=== PATIENT | female | born 1960 | race Caucasian/White ===

== ENCOUNTER 2022-02-18 13:26 | Outpatient (CLI) | payer MEDICARE, SELFPAY ==
--- NOTE | ~2022-02-18 | XR_ITS ---
XR knee RT 3V 02/18/2022 14:28 Indication: Right knee pain Procedure: 3 views right knee Comparison: No prior studies for comparison. Findings: There is mild-moderate tricompartment osteoarthritis. Small joint effusion. No fracture or traumatic malalignment. No foreign bodies. Impression: 1: Mild-moderate osteoarthritis of the right knee. Reviewed, dictated and finalized at location B. TRIMMER Impression: 1: Mild-moderate osteoarthritis of the right knee.
== END 2022-02-18 13:27 | disposition home or self-care (01) ==
LOC: CHSIMG 13:35
PROVIDERS: PCP Physician Assistant; Visit Provider Physician Assistant
DX: M25.561 Pain in right knee (principal)
CPT/HCPCS: 73562

== ENCOUNTER 2022-07-24 11:47 | Outpatient (CLI) | payer MEDICARE, MEDICAID, SELFPAY ==
--- NOTE | ~2022-07-24 | XR_ITS ---
EXAMINATION: XR knee RT 3V DATE: 07/24/2022 12:11 INDICATION: Right knee pain TECHNIQUE: Three views of the right knee were obtained. COMPARISON: 02/18/2022 FINDINGS: There is moderate osteoarthritis of the medial and patellofemoral compartments. Joint space s are normal with no erosions. There is a small knee joint effusion. Soft tissues are unremarkable. IMPRESSION: 1. Small knee joint effusion without acute osseous abnormality. Reviewed, dictated and finalized at location B.
== END 2022-07-24 11:48 | disposition home or self-care (01) ==
LOC: CHSIMG 11:50
PROVIDERS: PCP Physician Assistant; Visit Provider Physician Assistant
DX: M25.561 Pain in right knee (principal); M25.461 Effusion, right knee
CPT/HCPCS: 73562

== ENCOUNTER 2025-03-15 11:50 | Outpatient (CLI) | payer MEDICARE, MEDICAID, SELFPAY ==
--- OUTSIDE RECORDS SUMMARY | 2024-03-13 15:30 | XMS_ITS ---
Author Organization [facility] Address [address] [place], [place] [id number] Care Team Providers Care Tour Director Name Role Phone Allan Benedict MD Primary Care Provider Willy Del Toro Unavailable [phone] Migration, Provider Unavailable Unavailable Allergies Allergen (clinical drug ingredient) Drug/Non Drug Allergy documented on EMR Reaction Allergy Type Onset Date Status ciprofloxacin Cipro vomiting Drug Allergy Act ana Penicillin rash Drug Allergy Active REASON FOR VISIT Multum To Medispan Conversion Encounter Medications Medication SIG (Take, Route, Frequency, Duration) Notes Start Date End Date Status LaMICtal *Please review a nd pick correct strength-formulation from Medispan options. If intended option is not shown, discontinue and re-order from Quick Search* Active Vimpat *Please review a nd pick correct strength-formulation from Medispan options. If intended option is not shown, discontinue and re-order from Quick Search* Active Keppra *Please review a nd pick correct strength-formulation from Medispan options. If intended option is not shown, discontinue and re-order from Quick Search* Active Encounters Encounter Location Date Provider Diagnosis [facility] [address] [place], [place] [address] 03/13/2024 Provider Migration Plan Of Treatment No Information Progress Notes * Marcela CALVIN JDOB: [birth year] (65 yo F)Acc No.[id number]:03/13/2024 Patient: Marcela Ochoa Provider: Anne knight Migration :1960 A ge:64 Y S ex:Female Date:03/13/2024 Address:[facility]/[address] [place] [address] Pcp:Allan Benedict MD Subjective: * Chief Complaints: * M ultum To Medispan Conversion Encounter * Medications: T akingVimpat , Notes to Pharmacist: *Please review and pick correct strength-formulation from Medispan options. If intended option is not shown, discontinue and re-order from Quick Search*LaMICtal , Notes to Pharmacist: *Please review and pick correct strength-formulation from Medispan options. If intended option is not shown, discontinue and re-order from Quick Search*Keppra , Notes to Pharmacist: *Please review and pick correct strength-formulation from Medispan options. If intended option is not shown, discontinue and re-order from Quick Search*Taking Vimpat , Notes to Pharmacist: *Please review and pick correct strength-formulation from Medispan options. If intended option is not shown, discontinue and re-order from Quick Search*Taking LaMICtal , Notes to Pharmacist: *Please review and pick correct strength-formulation from Medispan options. If intended option is not shown, discontinue and re-order from Quick Search*Taking Keppra , Notes to Pharmacist: *Please review and pick correct strength- formulation from Medispan options. If intended option is not shown, discontinue and re-order from Quick Search* * Allergies: P enicillin: rashCipro: vomiting * Electronic signature of Prov ider Migration on 03/15/2025 at 02:09 PM COAGULATING BATH OPERATOR Sign off status: Pending * Provider: Anne knight Migration Date: 05/14/2023 Generated for Maria Antonia price/Nirmal/Eliotsmitting on: 05/16/2024 02:09 PM COAGULATING BATH OPERATOR
--- NOTE | ~2025-03-15 | XR_ITS ---
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 Technique: 2 views obtained. Findings: The lungs are clear, no effusion. No pneumothorax. Heart is normal size. Mediastinal and hilar contours are within normal limits. Bony thorax no acute abnormality. A subcutaneous implant noted. Impression: No acute cardiopulmonary abnormality. Reviewed, dictated and finalized at location P. CAGE ASSEMBLER Impression: No acute cardiopulmonary abnormality.
--- NOTE | 2025-03-15 12:06 | ECG_ITS ---
Test Date: 2025-03-15 12:16:33 Measurements Intervals [place] Rate: 88 P: 73 VA: 164 QRS: 87 QRSD: 86 T: 79 QT: 358 QTc: 435 Interpretive Statements SINUS RHYTHM CONSIDER ANTEROLATERAL INFARCT, AGE INDETERMINATE INFERIOR INFARCT, AGE INDETERMINATE BASELINE WANDER- V1-V2 ABNORMAL ECG No previous ECG available for comparison Electronically Signed On 03-15-2025 13:00:54 SANITARY LANDFILL OPERATOR by Reginaldo Ramirez D.O.
--- OUTSIDE RECORDS SUMMARY | 2025-03-15 14:10 | XMS_ITS ---
Author Organization [facility] Address [address] [place] [address] Phone Care Team Providers Care Alarm Adjuster Name Role Phone Gabriele Morrison Primary Care Provider [phone] Active Problems Problem Noted Date Diagnosed Date Folic acid deficiency 08/06/2024 CKD stage 3b, GFR 30-44 ml/min 08/06/2024 MDS (myelodysplastic syndrome) 06/25/2024 Hemochromatosis 03/08/2024 Anemia 03/08/2024 Sigmoid diverticulosis 11/10/2023 Current Treatment and Therapy Plans No current plan information found. Past Treatment and Therapy Plans ONCOLOGY SUPPORTIVE CARE Plan Name Start Date Discontinue Date Treatment Medications Discontinue Reason Plan Provider Cycles [facility]: Epoetin Fox (20,000 units every 2 weeks) - 56 Day Cycle - Support 08/09/2024 03/04/2025 No medications scheduled. Automatically Discontinued - Inactive Plan Pita Willams August, PAC 1 of 1 cycle started
--- OUTSIDE RECORDS SUMMARY | 2025-03-15 14:10 | XMS_ITS | Patient Health Record ---
Author Organization [facility] Address [address] [facility] [address] [place], [place] [address] Care Team Providers Care Supervisor Toy Assembly Name Role Phone Marichuy KAY, Allan Primary Care Provider Willy Del Toro [phone] Allergies Allergen (clinical drug ingredient) Drug/Non Drug Allergy documented on EMR Reaction Allergy Type Onset Date Status ciprofloxacin Cipro vomiting Drug Allergy Act ana Penicillin rash Drug Allergy Active Reason For Referral No Information Medications Medication SIG (Take, Route, Frequency, Duration) Notes Start Date End Date Status LaMICtal *Please review a nd pick correct strength-formulation from SeaDragon Softwarespan options. If intended option is not shown, discontinue and re-order from Quick Search* Active Vimpat *Please review a nd pick correct strength-formulation from SeaDragon Softwarespan options. If intended option is not shown, discontinue and re-order from Quick Search* Active Keppra *Please review a nd pick correct strength-formulation from SeaDragon Softwarespan options. 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
--- OUTSIDE RECORDS SUMMARY | 2025-03-15 14:10 | XMS_ITS | Clinical Summary ---
[facility] Address [address] [place] [address] Phone Care Team Providers Care Broom Worker Name Role Phone Gabriele Morrison Primary Care Provider [phone] Allergies Active Allergy Reactions Criticality Noted Date Comments Ciprofloxacin Diarrhea 03/08/2015 Penicillin G Rash 03/08/2015 Medications VIMPAT 200 MG Tablet 200 mg 2 times daily. 03/06/2015 Active lamoTRIgine (LAMICTAL) 100 MG Tablet 300 mg 2 times daily. 03/04/2015 Active Levetiracetam 1000 MG Tablet 1,500 mg 2 times daily. 03/04/2015 Active lisinopril (PRINIVIL, ZESTRIL) 2.5 MG Tablet 2.5 mg every morning. 02/06/2015 Active simvastatin (ZOCOR) 40 MG Tablet 40 mg daily. 02/06/2015 Active aspirin EC 81 MG Tablet Delayed Response Take 81 mg by mouth daily. Active Loratadine (CLARITIN) 10 MG Capsule Take 10 mg by mouth daily. Active famotidine (PEPCID) 20 MG Tablet Take 20 mg by mouth 2 times daily. Active LORazepam (Ativan) 1 MG Tablet Take 1 mg by mouth every 6 hours as needed. Active Magnesium 250 MG Tablet Take 250 mg by mouth 2 times daily. Active oxyCODONE-aceta minophen (Percocet) 5-325 MG TabletIndicatio ns:Multiple fractures of ribs, right side, initial encounter for closed fracture Take 1-2 Tablets by mouth every 8 hours as needed for Severe pain. 15 Tablet 06/05/2024 Active albuterol 108 (90 Base) MCG/ACT Aerosol Solution take 1-2 Puffs by inhalation. 06/24/2024 Active Active Problems Problem Noted Date Diagnosed Date Folic acid deficiency 08/06/2024 CKD stage 3b, GFR 30-44 ml/min 08/06/2024 MDS (myelodysplastic syndrome) 06/25/2024 Hemochromatosis 03/08/2024 Anemia 03/08/2024 Sigmoid diverticulosis 11/10/2023 Family History Medical History Relation Name Comments Diabetes Father Hypertension Father Osteoarthritis Father Rashes/Skin Problems Father Cancer Maternal Aunt 1 Cancer Maternal Aunt 2 Cancer Paternal Aunt Relation Name Status Comments Father Alive Maternal Aunt 1 Maternal Aunt 2 Alive Mother Alive Paternal Aunt Social History Tobacco Use Types Packs/Day Years Used Date Smoking Tobacco: Light Smoker Cigarettes Tobacco Cessation:Ready to Q uit: No; Counseling Given: No Comments:Off and on Alcohol Use Standard Drinks/Week Comments No 0 (1 standard drink = 0.6 oz pur e alcohol) Comments No Sex and Gender Information Value Date Recorded Sex Assigned at Not on file Legal Sex Female 8:34 PM CDT Gender Identity Not on file Sexual Orientation Not on file Last Filed Vital Signs Vital Sign Reading Time Taken Comments Blood Pressure 108/66 08/27/2024 11:04 AM CDT Pulse 71 08/27/2024 11:04 AM CDT Temperature 36.4 C (97.5 F) 08/27/2024 11:04 AM CDT Respiratory Rate 16 08/27/2024 11:04 AM CDT Oxygen Saturation 96% 08/27/2024 11:04 AM CDT Inhaled Oxygen Concentration - - Weight 55.8 kg (123 lb) 08/06/2024 2:13 PM CDT Height 170.2 cm (5' 7) 06/25/2024 2:26 PM CDT Body Mass Index 19.26 06/25/2024 2:26 PM CDT Plan of Treatment Health Maintenance Due Date Last Done Comments DEXA Bone Density 1960 Hepatitis C Virus (HCV) Screening 1960 Mammogram 1960 TdaP Immunization 1960 Cologuard 2003 Immunochemical Fecal Occult Blood 2003 Medicare Initial AWV [id number] 05/29/2009 Zoster Immunization (2 of 2) 02/12/2025 12/18/2024 SARS-COV-2 Immunization (9 - Pfizer risk season) 2025 12/18/2024, 02/03/2024, 12/30/2023, Additional history exists Colonoscopy 11/09/2033 11/10/2023, 11/10/2023 Colorectal Cancer Screening 11/09/2033 Pneumococcal Immunization (50+ years) Completed 02/20/2024, 03/04/2022 Influenza Immunization Completed , 02/03/2024, 12/30/2023, Additional history exists Respiratory Syncytial Virus (RSV) Immunization (Adult) Completed 11/27/2024 Hepatitis B Immunization Aged Out No longer eligible based on patient's age to complete this topic Human Papillomavirus (HPV) Immunization (No Doses Required) Completed Meningococcal Immunization (ACWY) Aged Out No longer eligible based on patient's age to complete this topic Rotavirus Immunization Aged Out No lo nger eligible based on patient's age to complete this topic Medical Devices Implanted Type Area Delta System Freight Car Cleaner Device Identifier Shelf Expiration Date Model / Serial / Lot Angioseal Vip 6fr - [id number] Implanted:Qty: 1 on 03/09/2015 by Mckayla Hernandez MD at [facility] IMPLANT Right: Groin [employer] / ATRIAL FIB 10/29/2015 [id number] / / [id number] Procedures Procedure Name Priority Date/Time Associated Diagnosis Comments GI IMAGING - COLONOSCOPY Routine 11/10/2023 9:30 AM CDT from Last 3 Months or Most Recently Relevant to Health Maintenance Results * GI IMAGING - COLONOSCOPY (11/10/2023 9:30 AM CDT) us Ke Burger MD IMG DIAGNOSTIC ORDERABLES Final Result from Last 3 Months or Most Recently Relevant to Health Maintenance Insurance MEDICAID [place] MEDICARE Care Teams Broom Worker Relationship Specialty Start Date End Date Gabriele Morrison PAC [address] [place] [address] PCP - General Physician Account Service Representative 03/08/15
--- OUTSIDE RECORDS SUMMARY | 2025-03-15 14:10 | XMS_ITS | Encounter Summary ---
Author Organization [facility] Address [address] [facility] [place] [address] Care Team Providers Care House Painter Name Role Phone Allan Benedict MD Unavailable [phone] Gabriele Morrison Primary Care Provider [phone] Encounter Details Date Type Department Care Team (Late st Contact Info) Description 05/20/2024 Lab Requisition [facility] - Pathology Lab [address] [place] [address] Ursula Randolph MD [facility] [address] [address] Illness, unspecified Social History Tobacco Use Types Packs/Day Years Used Date Smoking Tobacco: Every Day Cigarettes Smokeless Tobacco: Never Comments:offand on for 30 yr s Alcohol Use Standard Drinks/Week Comments No 0 (1 standard drink = 0.6 oz pur e alcohol) Comments No Sex and Gender Information Value Date Recorded Sex Assigned at Female 01/20/2021 9:42 AM CDT Legal Sex Female 11:57 AM PHOTOVOLTAIC TESTING TECHNICIAN Gender Identity Female 01/20/2021 9:42 AM CDT Sexual Orientation Straight 01/20/2021 9: 42 AM CDT documented as of this encounter Plan of Treatment Upcoming Encounters Date Type Department Care Team (Late st Contact Info) Description 08/08/2025 12:20 PM CDT Office Visit [place] [id number] [address] [place] [id number] [place] [address] [place] [phone] documented as of this encounter Procedures Procedure Name Priority Date/Time Associated Diagnosis Comments BONE MARROW BIOPSY (STL) Routine 05/19/2024 8:00 AM PHOTOVOLTAIC TESTING TECHNICIAN Illness, unspecified documented in this encounter Results * BONE MARROW BIOPSY (STL) (05/19/2024 8:00 AM PHOTOVOLTAIC TESTING TECHNICIAN) Case Report Bone Marrow Patholog y Report Case: [id number] Authorizing Provider: Ursula Randolph MD Collected: 05/19/2024 08:00 AM Ordering Location: [facility] - Received: 05/20/2024 12:55 PM Pathology Lab Pathologist: Mone Kowalski MD Specimens: A) - Bone Marrow Core B) - Bone Marrow Clot 05/25/2024 1:18 PM PHOTOVOLTAIC TESTING TECHNICIAN [facility] Final Diagnosis Bone marrow, iliac crest, core biopsy, clot section, and aspirate: - 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 The morphologic features of the bone marrow are consistent with a myelodysplastic neoplasm, assuming reactive etiologies of dyspoiesis have been eliminated which include nutritional deficiency (vitamin B12 and folate), heavy metal toxicity/deficiency (copper/zinc), autoimmune disease, infections, toxin exposure, and other reactive processes. The presence of 60% ring sideroblasts is highly suggestive of a myeloid neoplasm but not entirely specific for such and may be associated with lead toxicity, among other reactive processes. Correlation with cytogenetic data and molecular analysis is recommended. Myelodysplastic neoplasm with ring sideroblasts is associated with SF3B1 mutation but may be seen with any myeloid neoplasm. A CD34 immunohistochemistry stain is pending on the core biopsy to further assess the percent of blasts, but a significantly increased percentage of blasts is not appreciated by morphologic review. 05/25/2024 1:18 PM [facility] Peripheral Smear Description The patient's CBC performed at the time the bone marrow biopsy shows a white count of 5690/mcL, hemoglobin 9.6 g/dL, hematocrit 28.7%, MCV 107.5 fL, and a platelet count of 197,000/mcL. A differential was not performed. Review of the peripheral blood smear confirms the CBC data. The white count is within normal limits. The overall differential appears unremarkable with possible mild neutrophilia. Neutrophils are hypogranular, and occasional forms display ibrxce-Jwiiap-Hd t nuclei. Red cells are macrocytic. The platelet count and overall morphology are unremarkable. 05/25/2024 1:18 PM [facility] Bone Marrow Aspirate Differential count (200 cells): 1% blasts, 47% maturing myeloid precursors, 40.5% erythroid progenitors, 6.5% monocytes, 2% eosinophils, 2.5% lymphocytes, 0.5% plasma cells. Specimen quality: markedly suboptimal. Spicules: small. Trilineage Hematopoiesis: present Myeloid:Erythroid ratio: decreased. Mild myeloid dyspoiesis is noted characterized by hypogranular forms and neutrophils with nradvz-Abvhii-Mu t nuclei. Erythroid lineage cells mild dyspoiesis characterized by nuclear to cytoplasmic dyssynchrony, cytoplasmic vacuolization, and irregular nuclear contours. Storage iron (by special stain): adequate. Sideroblastic iron (by special stain): ring sideroblasts present accounting for 60% of the erythroid progenitors. 05/25/2024 1:18 PM [facility] Bone Marrow Core Biopsy and Clot Section Description Specimen quality: adequate with 0.6 cm of evaluable marrow. Cellularity: 20-30% Trilineage Hematopoiesis: present. Myeloid to Erythroid ratio: decreased. Myeloid maturation and localization: normal. Erythroid maturation and localization: normal. Megakaryocyte number: normal. Megakaryocyte distribution: normal. Lymphoid aggregates: absent. Bone trabeculae: normal. Blood vessels: normal. Plasma cells: normal. Clot section marrow particles: absent. Clot section morphology: peripheral blood only. 05/25/2024 1:18 PM [facility] Flow Cytometry Summary Flow cytometry identified a minimal T-cell aberrancy which was favored to be reactive and no diagnostic immunophenotypic evidence of monoclonal B-cells, increased blasts, plasma cell neoplasm ([id number]). 05/25/2024 1:18 PM [facility] Clinical History 64-year-old woman with anemia, exclude MDS 05/25/2024 1:18 PM [facility] Materials Received Received are 11 slide(s) labeled [id number] along with a copy of the outside pathology report. The materials originate from [facility], [address] [facility] [address]. All original materials are returned to the referring institution, along with a copy of our final report. 05/25/2024 1:18 PM [facility] Pathologist Location at [facility] 05/25/2024 1:18 PM [facility] Disclaimer The performance characteristics of all immunohistochemical and indirect immunofluorescence stains (if any) cited in this report were determined by the Histopathology Laboratory of [facility]. Some of these tests were developed by our own laboratory and have not been cleared or approved by the US Food and Drug Administration. The FDA does not require this test to go through premarket FDA review. These tests are used for clinical purposes. They should not be regarded as investigational or for research. This laboratory is certified under the Clinical Laboratory Improvement Amendments (CLIA) as qualified to perform high complexity clinical laboratory testing. This case has been personally reviewed and interpreted by the attending (teaching) pathologist. 05/25/2024 1:18 PM [facility] Addendum 1 CD34 is negative for increased blasts. Original diagnosis remains unchanged. 05/25/2024 1:18 PM [facility] Addendum electronically signed by Yessenia Miller MD on 05/25/2024 at 1318 PHOTOVOLTAIC TESTING TECHNICIAN Embedded Images 05/25/2024 1:18 PM [facility] Pathology/Cytology BONE MARROW CLOT SPECIMEN / Unknown 05/19/2024 8:00 AM PHOTOVOLTAIC TESTING TECHNICIAN 05/20/2024 12:55 PM PHOTOVOLTAIC TESTING TECHNICIAN Miscellaneous samples (specimen) BONE MARROW CLOT SPECIMEN / Unknown 05/19/2024 8:00 AM PHOTOVOLTAIC TESTING TECHNICIAN 05/20/2024 12:55 PM PHOTOVOLTAIC TESTING TECHNICIAN Ursula Randolph MD LAB - PATHOLOGY/CYTOLOGY ORDERAB LES Edited Result - Final [facility] [address] [place] [address], [facility] [phone] documented in this encounter Visit Diagnoses Diagnosis Illness, unspecified documented in this encounter Care Teams House Painter Relationship Specialty Start Date End Date Gabriele Morrison PA PCP - General Physician Owner Spa Director 04/22/11 Allan Benedict MD Neurology 11/19/10 documented as of this encounter
--- OUTSIDE RECORDS SUMMARY | 2025-03-15 14:10 | XMS_ITS | Encounter Summary ---
Author Organization [facility] Healthcare Address [address] [place] [address] Care Team Providers Care Alarm Technician Name Role Phone Alfredo Ortiz MD Unavailable [phone] Gabriele Morrison Primary Care Provider [phone] Mamadou Chavez MD Unavailable [phone] Tirso Troncoso MD Unavailable Mckayla Hernandez MD Unavailable [phone] Allan Benedict MD Unavailable [phone] Mitul Dennis OT Unavailable Unavailable Yaya Irvin MD Unavailable [phone] Encounter Details Date Type Department Care Team (Late st Contact Info) Description 02/02/2025 Results Follow-Up [facility] [address] [place] [address] Susi Torres MA ECG 12 lead, ECG 12 lead Social History Tobacco Use Types Packs/Day Years Used Date Smoking Tobacco: Some Days Cigarettes 0.3 39 Smokeless Tobacco: Never Alcohol Use Standard Drinks/Week Comments No 0 (1 standard drink = 0.6 oz pur e alcohol) AUDIT-C Answer Date Recorded Q1: How often do you have a drink containing alc ohol? Never 01/04/2025 Average Number of Drinks Not on file 025 Frequency of Binge Drinking Not on file 09/2024 Personal Safety Answer Date Recorded Have you ever been in or are you currently in a harmful physical or emotional relationship or is someone making you feel afraid or unsafe? 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 No 02/03/2025 2:56 PM Dionne Gustafson, RN * Question Answer Date of Assessment Author 1. In the past month, have y ou wished you were or that you could go to sleep and not wake up? No 02/03/2025 2:56 PM Dionne Gustafson, RN 2. In the past month, have y ou actually had any thoughts of killing yourself? No 02/03/2025 2:56 PM Dionne Gustafson, RN 6. Have you ever done anythi ng, started to do anything, or prepared to do anything to end your life? No 02/03/2025 2:56 PM Dionne Gustafson, RN * Suicide Risk Level Answer Date of Assessment Author No risk level 02/03/2025 2:56 PM Tanner Gustafson, RN * Integumentary Question Answer Date of Assessment Author Integumentary (WDL) WDL 02/03/2025 11:40 AM Dionne Herring, CHUCHO Skin Pertinent Negatives Intact;Warm;Dry 02/03/2025 11 :40 AM Dionne Gustafson, RN * Fall Risk Assessment Tool - MEDFRAT Question Answer Date of Assessment Author Prior Fall Event (Autopopulated from EMR) None found 02/03/2025 2:56 PM Tarsha Gustafson, RN History of falling in last 3 months, including since admission 0 02/03/2025 2:56 PM Dionne Gustafson, CHUCHO Confusion or disorientation 0 02/03/2025 2: 56 PM Dionne Gustafson, RN Intoxicated or sedated 0 02/03/2025 2:56 PM Dionne Gustafson, RN Impaired gait 1 02/03/2025 2:56 PM Dionne Portillo, RN Mobility assist device used 0 02/03/2025 2: 56 PM WELDING MACHINE OPERATOR Dionne Saucedo, CHUCHO Altered elimination 0 02/03/2025 2:56 PM CS T Dionne Saucedo, RN Fall risk score: (1-2 low risk), (3-4 moderate risk), (5 or more high risk) 1 02/03/2025 2:56 PM WELDING MACHINE OPERATOR Dionne Saucedo, RN documented as of this encounter Mental Status * Question Answer Entry Date Author Neuro (WDL) X 02/03/2025 11:40 AM WELDING MACHINE OPERATOR Dionne Marin, CHUCHO documented in this encounter Plan of Treatment Not on file documented as of this encounter Visit Diagnoses Not on filedocumented in this encounter Additional Health Concerns Infection Onset Date Last Indicated Resolved Time COVID: Suspected 02/03/2025 02/03/2025 02/03/2025 3:30 PM WELDING MACHINE OPERATOR documented as of this encounter Care Teams Alarm Technician Relationship Specialty Start Date End Date Gabriele Morrison PA [address] [place] [address] PCP - General Family Practice 11/22/22 Alfredo Ortiz MD Surgeon Neurosurgery 07/05/20 Mamadou Chavez MD [address] [place] [address] Referring Physician Medical Oncology 09/07/24 Tirso Troncoso MD [address] [place] [address] Medical Oncologist/Schedule Analyst Medical Oncology 09/07/24 Mckayla Hernandez MD [address] [place] [address] [place] [address] Consulting Physician Cardiology 01/04/25 [place] [address] [place] [address] [place] [id number] Referring Physician Neurology 01/04/25 Mitul Dennis OT Occupational Therapist Occupational Therapy 02/16/25 Yaya Irvin MD [address] [place] [address] [address] [place] [address] Surgeon Orthopedic Surgery 02/22/25 documented as of this encounter
--- OUTSIDE RECORDS SUMMARY | 2025-03-15 14:10 | XMS_ITS | Encounter Summary ---
Author Organization [facility] Address [address] [place] [address] Care Team Providers Care Sanitation Inspector Name Role Phone Allan Benedict MD Unavailable [phone] Gabriele Morrison Primary Care Provider [phone] Encounter Details Date Type Department Care Team (Late st Contact Info) Description 05/19/2024 Lab Requisition [facility] - Pathology Lab [address] [place] [address] Ursula Randolph MD [facility] [address] [address] Anemia, unspecified Social History Tobacco Use Types Packs/Day Years Used Date Smoking Tobacco: Every Day Cigarettes Smokeless Tobacco: Never Comments:offand on for 30 yr s Alcohol Use Standard Drinks/Week Comments No 0 (1 standard drink = 0.6 oz pur e alcohol) Comments No Sex and Gender Information Value Date Recorded Sex Assigned at Female 01/20/2021 9:42 AM CDT Legal Sex Female 11:57 AM [employer]ER [employer] Gender Identity Female 01/20/2021 9:42 AM CDT Sexual Orientation Straight 01/20/2021 9: 42 AM CDT documented as of this encounter Plan of Treatment Upcoming Encounters Date Type Department Care Team (Late st Contact Info) Description 08/08/2025 12:20 PM CDT Office Visit [place] [id number] [address] [place] [id number] [place] [phone] documented as of this encounter Procedures Procedure Name Priority Date/Time Associated Diagnosis Comments FLOW CYTOMETRY BONE MARROW Routine 05/19/2024 8:00 AM [facility] [employer] Anemia, unspecified documented in this encounter Results * FLOW CYTOMETRY BONE MARROW (05/19/2024 8:00 AM [facility] [employer]) Case Report Flow Cytometry Case: [id number] Authorizing Provider: Ursula Randolph MD Collected: 05/19/2024 08:00 AM Ordering Location: [facility] - Received: 05/19/2024 12:59 PM Pathology Lab Pathologist: Mone Kowalski MD Specimen: Bone Marrow 05/19/2024 3:50 PM [facility] Final Diagnosis Bone marrow, flow cytometric immunophenotyping: - Minimal T-cell aberrancy identified, favor reactive (see comment) - No diagnostic immunophenotypic evidence of monoclonal B-cells, increased blasts, or plasma cell neoplasm Comment: Two, minimally aberrant T-cell populations are identified as described below, each of which accounts for 3% or less of total cells. The low percentage of aberrant T cells, combined with the normal CD4:CD8 ratio, favors a reactive process. Correlation with histologic review the bone marrow is necessary. 05/19/2024 3:50 PM [facility] at [address]50 [facility] Flow Cytometry Interpretation Viability: 88% B-cells: 1.5% of total, polytypic, kappa:lambda ratio 1.4:1 T-cells: 14% of total, immunophenotypic aberrancy detected in a subset characterized by CD8-positive T cells with decreased CD3 expression compared to CD7 accounting for approximately 3% of total cells. In addition, a subset of CD4-positive T-cells is identified which shows decreased expression of CD7 compared to CD3 (approximately 2% of total). CD4:CD8 ratio 2.3:1 Blasts: detected, 1.8%, express CD34, CD13, CD33 Plasma cells: no significant population detected MRD sent: No A bone marrow aspirate smear prepared from the flow cytometry specimen has been reviewed for quality assurance analyst purposes. 05/19/2024 3:50 PM [facility] Flow Cytometry Results Differential Result Comment Flow Cell Count /uL 10,200 Total Viability % 88.0 Lymphocytes % 22 Dim CD45 Region % 8 Monocytes % 8 Granulocytes % 62 05/19/2024 3:50 PM [facility] Reason for test Anemia, unspecified 285.9 05/19/2024 3:50 PM [facility] Client Specimen ID # [id number] 05/19/2024 3:50 PM [facility] Number of markers 17 were performed. A-2 Flow CD10 A-3 Flow CD13 A-5 Flow CD20 A-11 Flow CD2 A-12 Flow CD3 A-13 Flow CD4 A-16 Flow CD1a A-1 Flow CD5 A-4 Flow CD19 A-6 Flow CD33 A-7 Flow CD34 A-8 Flow CD45 A-14 Flow CD7 A-15 Flow CD8 A-17 Flow CD30 A-9 Tolsona+CD19+ A-10 Lambda+CD19+ 05/19/2024 3:50 PM [facility] Pathologist Location at [facility] 05/19/2024 3:50 PM [facility] Disclaimer Test performed at [facility], [address] [place] [address], [id number]. *The established laboratory minimum viability is 70%. Values below the minimum may result in the failure to find an abnormal population of cells. This test was developed and its performance characteristics determined by the Flow Cytometry Laboratory. It has not been cleared by the [place] Food and Drug Administration (FDA). The FDA has determined that such clearance or approval is not necessary. This test is used for clinical purposes. It should not be regarded as investigational or for research. This laboratory is regulated under the Clinical Laboratory Improvement Amendments of 1998 (CLIA) as a qualified to perform high complexity clinical testing. 05/19/2024 3:50 PM [facility] Embedded Images 3:50 PM [facility] Pathology/Cytolo gy BONE MARROW SPECIMEN / Unknown 05/19/2024 8:00 AM [facility] 05/19/2024 12:59 PM [facility] [employer] us Ursula Randolph MD LAB - PATHOLOGY/CYTOLOGY ORDERAB LES Final Result [facility] [address] [place] [address], [facility] [phone] documented in this encounter Visit Diagnoses Diagnosis Anemia, unspecified documented in this encounter Care Teams Sanitation Inspector Relationship Specialty Start Date End Date Gabriele Morrison PA PCP - General Physician Community Marketing Coordinator 04/22/11 Allan Benedict MD Neurology 11/19/10 documented as of this encounter
--- OUTSIDE RECORDS SUMMARY | 2025-03-15 14:10 | XMS_ITS | Clinical Summary ---
Author Organization [facility] Address [address] [place] [address] Care Team Providers Care Technical Laboratory Asst Name Role Phone Alfredo Ortiz MD Unavailable [phone] Gabriele Morrison Primary Care Provider [phone] Mamadou Chavez MD Unavailable [phone] Tirso Troncoso MD Unavailable Mckayla Hernandez MD Unavailable [phone] Allan Benedict MD Unavailable [phone] Mitul Dennis OT Unavailable Unavailable Yaya Irvin MD Unavailable Allergies Active Allergy Reactions Criticality Noted Date Comments Ciprofloxacin Vomiting Low 05/21/2017 Penicillins Swelling Medium Rash - has tolerated cefazolin 05/2017 & 06/2020 Medications lamoTRIgine (LaMICtal) 100 mg tablet Take 3 tablets (300 mg total) by mouth 2 (two) times a day Active LISINOPRIL ORAL Take 2.5 mg by mouth daily Active simvastatin (ZOCOR) 40 mg tablet Take 1 tablet (40 mg total) by mouth nightly Active famotidine (PEPCID) 20 mg tablet Take 1 tablet (20 mg total) by mouth 2 (two) times a day Active cannabidiol, CBD, (EPIDIOLEX) 100 mg/mL solutionIndication s:3.5 ml BID Take by mouth 2 (two) times a day Active albuterol HFA (PROVENTIL HFA,VENTOLIN HFA,PROAIR HFA) 90 mcg/actuation inhaler 2 puffs every 4 (four) hours as needed 06/25/19 Active magnesium oxide (MAG-OX) 415 mg (250 mg elemental) tablet Take 250 mg by mouth 2 (two) times a day Active benazepriL (LOTENSIN) 5 mg tabletIndications: MDS (myelodysplastic syndrome) (HCC) Take 1 tablet (5 mg total) by mouth daily 01/14/20 25 Active levETIRAcetam (KEPPRA) 1,000 mg tablet Take 1.5 tablets (1,500 mg total) by mouth 2 (two) times a day 01/30/20 Active lacosamide (VIMPAT) 200 mg tablet Take 1 tablet (200 mg total) by mouth 2 (two) times a day 02/09/20 Active LORazepam (ATIVAN) 1 mg tablet Take 1 tablet (1 mg total) by mouth every 8 (eight) hours as needed for anxiety 02/08/20 Active aspirin 81 mg enteric coated tabletIndications: Deep Vein Thrombosis Prevention Take 1 tablet (81 mg total) by mouth 2 (two) times a day 84 tablet 02/23/20 25 026 Active ascorbic acid (VITAMIN C) 500 mg tablet,chewableInd ications:Vitamin deficiency prevention Take 1 tablet/chew tab (500 mg total) by mouth daily 30 tablet/chew tab 02/23/20 25 025 Active ferrous sulfate 325 mg (65 mg of elemental iron) tabletIndications: Iron Deficiency Anemia,Anemia prevention Take 1 tablet (325 mg total) by mouth daily with breakfast 30 tablet 02/23/20 25 025 Active ondansetron ODT (ZOFRAN-ODT) 4 mg disintegrating tabletIndications: nausea and vomiting Take 1 tablet (4 mg total) by mouth every 6 (six) hours as needed for nausea or vomiting 20 tablet 2 02/23/20 25 Active oxyCODONE-acetamin ophen (PERCOCET) 5-325 mg per tabletIndications: Pain Take 1 tablet by mouth every 4 (four) hours as needed for pain 40 tablet 02/23/20 Active senna-docusate (PERICOLACE) 8.6-50 mgIndications:cons tipation Take 2 tablets by mouth 2 (two) times a day 60 tablet 2 02/23/20 Active LORazepam (ATIVAN) 0.5 mg tabletIndications: anxiety Take 2 tablets (1 mg total) by mouth every 8 (eight) hours as needed for anxiety Discontin ued(Thera py completed ) LACOSAMIDE (VIMPAT ORAL) Take 200 mg by mouth 2 (two) times a day. Discontin ued(Dupli tomas order) levETIRAcetam (KEPPRA) 750 mg tablet Take 2 tablets (1,500 mg total) by mouth 2 (two) times a day Discontin ued(Dupli tomas order) aspirin 81 mg tablet Take 1 tablet (81 mg total) by mouth daily Discontin ued(Stop Taking at Discharge ) folic acid (FOLVITE) 1 mg tablet Take 1 tablet (1 mg total) by mouth daily Discontin ued(Stop Taking at Discharge ) Active Problems Problem Noted Date Diagnosed Date Hyperkalemia 02/22/2025 Assessment & Plan (02/22/2025 11:44 AM CLASSROOM MONITOR): Present on admission; Resolved, K+ 4.1 In the setting of longstanding lisinopril usage. Preoperatively found to be ranging between 5.15.6 to 4.5-4.6 Corrected with 10 g of albuterol. Recommend follow-up with PCP regarding possible substitution of lisinopril 2.5 mg to alternative. EKG showed no concerning findings. Since hyperkalemia has resolved, we will sign off and discharge at discretion of Orthopedics team Primary osteoarthritis of right knee 02/11/2025 CKD stage 3b, GFR 30-44 ml/min 10/04/2024 MDS (myelodysplastic syndrome) 08/31/2024 Unclassified epileptic seizures 10/16/2022 Old CO (myocardial infarction) 10/08/2022 Coronary artery disease invo lving lime coronary artery of lime heart without angina pectoris 10/08/2022 Presence of drug-eluting john nt in left circumflex coronary artery 10/08/2022 Smoking 10/08/2022 Essential hypertension 10/08/2022 Mixed hyperlipidemia 10/08/2022 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 epilepticus 09/10/2022 Encounters Date Type Department Care Team Description 03/08/2025 2:00 PM CLASSROOM MONITOR Infusion [address] [address] MDS (myelodysplastic syndrome) (HCC) (Primary Dx) 03/08/2025 1:30 PM CLASSROOM MONITOR Lab [address] [address] MDS (myelodysplastic syndrome) (HCC) 02/28/2025 [facility] Post Discharge Follow up phone call [facility] Surgery Care [address] [place] [phone] Jasmyne Wayne 02/21/2025 3:44 PM CLASSROOM MONITOR - 02/21/2025 11:59 PM CLASSROOM MONITOR Hospital Encounter [address] [address] Discharge Disposition: Discharge to home or self care 02/21/2025 2:10 PM CLASSROOM MONITOR - 02/21/2025 4:40 PM CLASSROOM MONITOR Surgery [facility] Operating Room 1 [place] [address] Yaya Irvin MD Right Total Knee Arthroplasty 02/21/2025 12:16 PM CLASSROOM MONITOR Anesthesia Event [facility] Operating Room 1 [place] [address] Mino Muhammad MD Reynolds, Ethan Emerson, MD 02/21/2025 11:24 AM CLASSROOM MONITOR - 02/23/2025 9:35 AM CLASSROOM MONITOR Hospital Encounter [facility] Surgery Care [address] [place] [address] Yaya Irvin MD Primary osteoarthritis of right knee; Exposure to blood-borne pathogen Discharge Disposition: Discharge to home or self care 02/21/2025 Orders Only [facility] Healthcare Occupatiuonal Health [address] [place] [address] Ger Wall MD Exposure to blood-borne pathogen (Primary Dx) 02/21/2025 Orders Only [facility] Occupatiuonal [address] [address] Ger Wall MD Exposure to blood-borne pathogen (Primary Dx) 02/21/2025 Orders Only [facility] [address] [facility] [address] [place] [address] Sean De Los Santos MD Exposure to blood-borne pathogen 02/09/2025 2:36 PM CLASSROOM MONITOR - 02/09/2025 11:59 PM CLASSROOM MONITOR Hospital Encounter [facility] Imaging Center 1 [place] [address] Discharge Disposition: Discharge to home or self care 02/09/2025 2:35 PM CLASSROOM MONITOR Lab [address] [address] Right knee pain, unspecified chronicity 02/09/2025 2:34 PM CLASSROOM MONITOR - 02/09/2025 11:59 PM CLASSROOM MONITOR Hospital Encounter [facility] Cardiology [address] [place] [address] Right knee pain, unspecified chronicity Discharge Disposition: Discharge to home or self care 02/09/2025 1:15 PM CLASSROOM MONITOR Office Visit [facility] at [address] [place] [address] Mckayla Hernandez MD Old CO (myocardial infarction) (Primary Dx); Coronary artery disease involving lime coronary artery of lime heart without angina pectoris; Presence of drug-eluting stent in left circumflex coronary artery; Essential hypertension; Mixed hyperlipidemia 02/07/2025 8:00 AM CLASSROOM MONITOR Lab [address] [place] [address] MDS (myelodysplastic syndrome) (HCC) 02/07/2025 8:00 AM CLASSROOM MONITOR Infusion [address] [place] [address] MDS (myelodysplastic syndrome) (HCC) (Primary Dx) 02/07/2025 Orders Only [facility] Medicine [facility] [address] [place] [address] Medical Office [address] [place] [address] Mamadou Chavez MD 02/03/2025 11:22 AM CLASSROOM MONITOR - 02/03/2025 11:16 PM CLASSROOM MONITOR Emergency [facility] Emergency Department [address] [place] [address] Allan Acosta MD Varasteh, Alexander, MD Abdominal pain, epigastric (Primary Dx) Discharge Disposition: Discharge to home or self care 02/02/2025 7:00 PM CLASSROOM MONITOR Office Visit [facility] Medical [facility] [address] [place] [address] Azalia Pena NP Nausea vomiting and diarrhea (Primary Dx); Vertigo; Upper abdominal pain 02/02/2025 Results Follow-Up [facility] Medical [facility] [address] [place] [phone] Susi Torres MA ECG 12 lead, ECG 12 lead 01/19/2025 10:30 AM CDT Office Visit [facility] Medicine Bone Marrow Transplant [address] [place] [phone] Tirso Troncoso MD MDS (myelodysplastic syndrome) (HCC) (Primary Dx) 01/19/2025 9:45 AM CDT Lab [facility] - Lab Collection [facility] [address] [place] [address] MDS (myelodysplastic syndrome) (HCC) 01/19/2025 9:30 AM CDT Lab [facility] Medicine Oncology Lab [address] [place] [phone] MDS (myelodysplastic syndrome) (HCC) 01/17/2025 11:30 AM CDT Lab [facility] [address] [facility] [address] [place] [address] MDS (myelodysplastic syndrome) (HCC) 01/17/2025 11:30 AM CDT Infusion [facility] [address] [facility] [address] [place] [address] MDS (myelodysplastic syndrome) (HCC) 01/04/2025 9:45 AM CDT Office Visit [facility] Medical [facility] Orthopedics and Sports Medicine [address] [facility] [address] [place] [address] Yaya Irvin MD Right knee pain, unspecified chronicity (Primary Dx); Primary osteoarthritis of right knee; Primary osteoarthritis of left knee 01/04/2025 7:45 AM CDT - 01/04/2025 11:59 PM CDT Hospital Encounter [facility] Medical [facility] Orthopedics and Sports Medicine [address] [place] [address] [address] [place] [address] Discharge Disposition: Discharge to home or self care 01/04/2025 Telephone [facility] Orthopedics and Sports Medicine [address] [place] [address] [address] [place] [address] Yaya Irvin MD Surgical Clearance (Neuro surgical clearance for surgry on 02/21/25) 01/04/2025 Orders Only [facility] Orthopedics and Sports Medicine [address] [place] [address] [address] [place] [address] Yaya Irvin MD 12/27/2024 11:30 AM CDT Infusion [facility] Infusion [address] [place] [address] MDS (myelodysplastic syndrome) (HCC) 12/27/2024 11:15 AM CDT [facility] [address] [place] [address] Medical Office [address] [place] [address] Mamadou Chavez MD MDS (myelodysplastic syndrome) (HCC) (Primary Dx) 12/27/2024 10:45 AM CDT Lab [address] [place] [address] MDS (myelodysplastic syndrome) (HCC) from Last 3 Months Immunizations Immunization Administration Dates Next Due COVID-19 mRNA (SingOn) 0.3 m L (30 mcg) vaccine (12 years and up) 02/03/2024 Influenza, Quadrivalent, Hig h Dose, Preservative Free, Intrr 01/20/2023,03/04/2022 Influenza, Quadrivalent, Spl it, Intramuscular 01/12/2021,01/21/2020,01/08/2017 Influenza, Trivalent, High D ose, Split, Preservative Free, Intramuscular 11/27/2024,12/30/2023 Influenza, Trivalent, IM (MDV) 12/30/2016 Influenza, Unspecified 02/03/2024 Pneumococcal Conjugate Pcv20 02/20/2024,03/04/20 RSV, Bivalent, Protein Subun it Rsvpref, Diluent (Abrysvo) 11/27/2024 ZOSTER Recombinant 12/18/2024 Surgical History Surgery Date Site/Laterality Comments CARDIAC CATHETERIZATION 03/31/2014 - 03/30/2015 patent LCX stent CARDIAC STENT PLACEMENT 03/31/2011 - 03/30/2012 LCX REPLACE / REVISE VAGAL NERVE STIMULATOR x 2 IMPLANTATION VAGAL NERVE STIMULATOR first VNS CATARACT EXTRACTION, BILATERAL COLONOSCOPY Medical History Medical History Date Comments Anxiety disorder Myocardial infarct (HCC) Scoliosis CAD (coronary artery disease) Epilepsy, grand mal it's been ov er a year 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) staring, facial gestures and vocalizations Tremors of nervous system Current smoker 5 cigarettes per day 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 epilepticus, unspecified epilepsy type (HCC) MDS (myelodysplastic syndrome) (HCC) Hypertension Lung disease Family History Medical History Relation Name Comments Diabetes type II Father Skin cancer Sister Relation Name Status Comments Father Alive Mother Alive Sister Alive Social History Tobacco Use Types Packs/Day Years Used Date Smoking Tobacco: Some Days Cigarettes 0.3 39 Smokeless Tobacco: Never Tobacco Cessation:Ready to Q uit: Not Asked; Counseling Given: Not Answered Alcohol Use Standard Drinks/Week Comments Never 0 (1 standard drink = 0.6 oz pur e alcohol) AUDIT-C Answer Date Recorded Q1: How often do you have a drink containing alcohol? Never 02/21/2025 Q2: How many drinks containi ng alcohol do you have on a typical day when you are drinking? Patient does not drink Q3: How often do you have si x or more drinks on one occasion? Never 02/21/2025 Personal Safety Answer Date Recorded Have you ever been in or are you currently in a harmful physical or emotional relationship or is someone making you feel afraid or unsafe? Denies 02/21/2025 Comments No Sex and Gender Information Value Date Recorded Sex Assigned at Not on file Legal Sex Female 11:49 PM CLASSROOM MONITOR Gender Identity Female 06/28/2020 9:15 AM CDT Sexual Orientation Not on file Last Filed Vital Signs Vital Sign Reading Time Taken Comments Blood Pressure 124/73 03/08/2025 1:59 PM CLASSROOM MONITOR Pulse 80 03/08/2025 1:59 PM CLASSROOM MONITOR Temperature 36.2 C (97.2 F) 03/08/2025 1:59 PM CLASSROOM MONITOR Respiratory Rate 18 03/08/2025 1:59 PM CLASSROOM MONITOR Oxygen Saturation 98% 03/08/2025 1:59 PM CLASSROOM MONITOR Inhaled Oxygen Concentration - - Weight 54.7 kg (120 lb 9.5 oz) 02/21/2025 11:53 AM CLASSROOM MONITOR Height 172.7 cm (5' 8) 02/21/2025 11:53 AM CLASSROOM MONITOR Body Mass Index 18.34 02/21/2025 11:53 AM CLASSROOM MONITOR Plan of Treatment Health Maintenance Due Date Last Done Comments Breast Cancer Screening-Mammogram 1958 Colon Cancer Screening-Colonoscopy 1960 Depression Screening 1958 Osteoporosis Screening-Bone Density Scan 1958 DTaP/Tdap/Td Vaccine (1 - Tdap) 1969 Hepatitis B Screening 01/02/1976 Well Visit 65+ 2023 Zoster Vaccine (2 of 2) 02/12/2025 12/18/2024 Covid-19 Vaccine (2024-2 6 season) 2025 12/18/2024, 02/03/2024, 12/30/2023, Additional history exists Fall Risk Assessment 02/23/2026 02/23/2025 Pneumococcal vaccine 65+ Completed 02/20/2024, 12/0 07/2021 Influenza Vaccine Completed 11/27/2024, , 12/30/2023, Additional history exists Hepatitis C Screening Completed 02/21/2025 Goals Goal Patient Goal Type Associated Problems Recent Progress Patient-Stated? Author Autogenera charito Goal Care Plan Autogenerated Problem No Claudia Lizama MA Medical Devices Implanted Type Area Vascular Nurse Device Identifier Shelf Expiration Date Model / Serial / Lot Other - See Comments Other - see comments Chest Wall Other Description:Vagal nerve stim ulator Stent Stent Heart Other Generator Neurostimulator Vns Therapy Aspiresr Thk7 Mm 14 Cc 25 Gm Sterile 1 Pin Lead - [id number] - [id number] Implanted:Qty: 1 on 05/21/2017 by Alfredo Ortiz MD at [facility] Left: Chest [employer] [id number] 03/19/2019 106 / [id number] / Livanova 1000 Epilepsy Vagus Nerve System Nerve Stimulator - [id number] - [id number] Implanted:Qty: 1 on 07/05/2020 by Alfredo Ortiz MD at [facility] Left: Chest [employer]ova [id number] 04/10/2022 1000 / [id number] / Livanova Epilepsy Vagus Nerve System Nerve Stimulator 1000 - [id number] - [id number] Implanted:Qty: 1 on 10/16/2022 by Alfredo Ortiz MD at [facility] N/A: Chest [employer] [id number] 08/14/2024 1000 / [id number] / Depuy [employer] Component Femoral Knee Porous Cruciate Retaining Narrow Right Attune Size 6 [id number] - [id number] Implanted:Qty: 1 on 02/21/2025 by Yaya Irvin MD at [facility] Right: Knee [employer] [id number] 12/28/2034 [id number] / / [id number] [employer] Tibial Baseplate Knee Porous Fixed Attune Affixium Size 5 Titanium [id number] - [id number] Implanted:Qty: 1 on 02/21/2025 by Yaya Irvin MD at [facility] Right: Knee [employer] [id number] 06/28/2034 [id number] / / [id number] [employer] Insert Tibial Attune Right Medial Stabilized Sz 6 6mm Fixed Bearing Polyethylene [id number] - [id number] Implanted:Qty: 1 on 02/21/2025 by Yaya Irvin MD at [facility] Right: Knee [employer] [id number] 12/28/2032 [id number] / / [id number] Procedures Procedure Name Priority Date/Time Associated Diagnosis Comments EGFR Routine 03/08/2025 1:30 PM CLASSROOM MONITOR MDS (myelodysplastic syndrome) (HCC) DIFFERENTIAL AUTO Routine 03/08/2025 1:3 0 PM CLASSROOM MONITOR MDS (myelodysplastic syndrome) (HCC) COMPREHENSIVE METABOLIC PANEL Routine 03/08/2025 1:30 PM CLASSROOM MONITOR MDS (myelodysplastic syndrome) (HCC) CBC WITH AUTO DIFFERENTIAL Routine 03/08/2025 1:30 PM CLASSROOM MONITOR MDS (myelodysplastic syndrome) (HCC) EGFR Routine 02/23/2025 2:44 AM CLASSROOM MONITOR CBC WITHOUT DIFFERENTIAL Routine 02/23/2025 2:44 AM CLASSROOM MONITOR BASIC METABOLIC PANEL Routine 02/23/2025 2:44 AM CLASSROOM MONITOR POTASSIUM LEVEL Timed 02/22/2025 8:01 PM CLASSROOM MONITOR POTASSIUM LEVEL Timed 02/22/2025 4:26 PM CLASSROOM MONITOR POTASSIUM LEVEL Timed 02/22/2025 1:24 PM CLASSROOM MONITOR POTASSIUM LEVEL Timed 02/22/2025 9:42 AM CLASSROOM MONITOR ECG 12-LEAD STAT 02/22/2025 8:51 AM CLASSROOM MONITOR EGFR Routine 02/22/2025 4:06 AM CLASSROOM MONITOR CBC WITHOUT DIFFERENTIAL Routine 02/22/2025 4:06 AM CLASSROOM MONITOR BASIC METABOLIC PANEL Routine 02/22/2025 4:06 AM CLASSROOM MONITOR RAPID HIV 1/2 AG/AB COMBO STAT 02/21/2025 4:15 PM CLASSROOM MONITOR HEPATITIS B SURFACE ANTIGEN Routine 02/21/2025 4:15 PM CLASSROOM MONITOR HEPATITIS C ANTIBODY Routine 02/21/2025 4:15 PM CLASSROOM MONITOR XR KNEE RIGHT 1 OR 2 VIEWS IP Routine 02/21/2025 2:16 PM CLASSROOM MONITOR FL AN ELECTIVE ENDOTRACHEAL AIRWAY Routine 02/21/2025 12:48 PM CLASSROOM MONITOR APTT STAT 02/21/2025 11:57 AM CLASSROOM MONITOR PROTIME-INR STAT 02/21/2025 11:57 AM CLASSROOM MONITOR ARTHROPLASTY TOTAL KNEE 02/21/2025 11:56 AM CLASSROOM MONITOR Primary osteoarthritis of right knee Special Needs Robotic, Depuy- Attune , Velys, Cooling [facility], 1 Liter Beta Rinse, Pt to Stay SURGICAL PATHOLOGY Routine 02/21/2025 9: 14 AM CLASSROOM MONITOR Primary osteoarthritis of right knee XR CHEST PA LATERAL 2 VIEWS Schedule WILBER, Read Routine (Patient lives out of area) 02/09/2025 3:32 PM CLASSROOM MONITOR Right knee pain, unspecified chronicity ECG 12-LEAD Routine 02/09/2025 3:00 PM CLASSROOM MONITOR Right knee pain, unspecified chronicity EGFR Routine 02/09/2025 2:38 PM CLASSROOM MONITOR Right knee pain, unspecified chronicity URINALYSIS, MICROSCOPIC ONLY Routine 02/09/2025 2:38 PM CLASSROOM MONITOR Right knee pain, unspecified chronicity DIFFERENTIAL AUTO Routine 02/09/2025 2:3 8 PM CLASSROOM MONITOR Right knee pain, unspecified chronicity CBC WITH AUTO DIFFERENTIAL Routine 02/09/2025 2:38 PM CLASSROOM MONITOR Right knee pain, unspecified chronicity COMPREHENSIVE METABOLIC PANEL Routine 02/09/2025 2:38 PM CLASSROOM MONITOR Right knee pain, unspecified chronicity HEMOGLOBIN A1C Routine 02/09/2025 2:38 PM CLASSROOM MONITOR Right knee pain, unspecified chronicity URINALYSIS AND REFLEX TO MICROSCOPIC AND CULTURE Routine 02/09/2025 2:38 PM CLASSROOM MONITOR Right knee pain, unspecified chronicity EGFR Routine 02/07/2025 8:10 AM CLASSROOM MONITOR MDS (myelodysplastic syndrome) (HCC) DIFFERENTIAL AUTO Routine 02/07/2025 8:1 0 AM CLASSROOM MONITOR MDS (myelodysplastic syndrome) (HCC) COMPREHENSIVE METABOLIC PANEL Routine 02/07/2025 8:10 AM CLASSROOM MONITOR MDS (myelodysplastic syndrome) (HCC) CBC WITH AUTO DIFFERENTIAL Routine 02/07/2025 8:10 AM CLASSROOM MONITOR MDS (myelodysplastic syndrome) (HCC) URINALYSIS AND REFLEX TO MICROSCOPIC AND CULTURE STAT 02/03/2025 2:03 PM CLASSROOM MONITOR LACOSAMIDE Add-On 02/03/2025 1:40 PM CLASSROOM MONITOR TROPONIN T HIGH-SENSITIVITY 2-HOUR Timed 02/03/2025 1:40 PM CLASSROOM MONITOR RESPIRATORY PATHOGEN PANEL STAT 02/03/2025 1:[address] ABDOMEN PELVIS W CONTRAST STAT 02/03/2025 12:[address] HEAD WO CONTRAST ED Urgent/IP Urgent 02/03/2025 12:52 PM CLASSROOM MONITOR XR CHEST 1 VIEW ED Urgent/IP Urgent 02/03/2025 12:15 PM CLASSROOM MONITOR EGFR STAT 02/03/2025 11:44 AM CLASSROOM MONITOR DIFFERENTIAL AUTO STAT 02/03/2025 11:44 AM CLASSROOM MONITOR LIPASE Add-On 02/03/2025 11:44 AM CLASSROOM MONITOR TROPONIN T HIGH-SENSITIVITY SERIES (BASELINE, 2HR, 4HR, 6HR) STAT 02/03/2025 11:44 AM CLASSROOM MONITOR COMPREHENSIVE METABOLIC PANEL STAT 02/03/2025 11:44 AM CLASSROOM MONITOR CBC WITH AUTO DIFFERENTIAL STAT 02/03/2025 11:44 AM CLASSROOM MONITOR ECG 12-LEAD STAT 02/03/2025 11:36 AM CLASSROOM MONITOR POCT GLUCOSE Routine 02/02/2025 7:38 PM CLASSROOM MONITOR Vertigo POCT URINALYSIS DIPSTICK Routine 02/02/2025 6:55 PM CLASSROOM MONITOR Nausea vomiting and diarrhea EGFR Routine 01/19/2025 9:46 AM CDT MDS (myelodysplastic syndrome) (HCC) COMPREHENSIVE METABOLIC PANEL Routine 01/19/2025 9:46 AM CDT MDS (myelodysplastic syndrome) (HCC) LACTATE DEHYDROGENASE Routine 01/19/2025 9:46 AM CDT MDS (myelodysplastic syndrome) (HCC) DIFFERENTIAL AUTO Routine 01/19/2025 9:4 4 AM CDT MDS (myelodysplastic syndrome) (HCC) CBC WITH AUTO DIFFERENTIAL Routine 01/19/2025 9:44 AM CDT MDS (myelodysplastic syndrome) (HCC) EGFR Routine 01/17/2025 11:20 AM CDT MDS (myelodysplastic syndrome) (HCC) DIFFERENTIAL AUTO Routine 01/17/2025 11:20 AM CDT MDS (myelodysplastic syndrome) (HCC) CBC WITH AUTO DIFFERENTIAL Routine 01/17/2025 11:20 AM CDT MDS (myelodysplastic syndrome) (HCC) COMPREHENSIVE METABOLIC PANEL Routine 01/17/2025 11:20 AM CDT MDS (myelodysplastic syndrome) (HCC) XR KNEE RIGHT 4 OR MORE VIEWS Schedule Routine, Read Routine (OP Routine) 01/04/2025 9:51 AM CDT Right knee pain, unspecified chronicity EGFR Routine 12/27/2024 10:50 AM CDT MDS (myelodysplastic syndrome) (HCC) COMPREHENSIVE METABOLIC PANEL Routine 12/27/2024 10:50 AM CDT MDS (myelodysplastic syndrome) (HCC) DIFFERENTIAL AUTO Routine 12/27/2024 10:50 AM CDT CBC WITH AUTO DIFFERENTIAL Routine 12/27/2024 10:50 AM CDT from Last 3 Months Results * (ABNORMAL) eGFR (03/08/2025 1:30 PM CLASSROOM MONITOR) eGFR 42(L) >=60 mL/min/1. 73 m2 Comment: Interpretive Data Reference Interval Normal >/= 90 mL/min/1.73m2 Mildly decreased* 60 - 89 mL/min/1.73m2 Mildly to moderately decreased 45 - 59 mL/min/1.73m2 Moderately to severely decreased 30 - 44 mL/min/1.73m2 Severely decreased 15 - 29 mL/min/1.73m2 Kidney Failure < 15 mL/min/1.73m2 *Relative to young adult level Estimated glomerular filtration rate is determined by the 2020 CKD-EPI equation recommended by the National Kid[employer] (A Unifying Approach to GFR Estimation: Recommendations of the NKF-ASK Task Force on Reassessing the Inclusion of Race in Diagnosing Kidney Disease, JASN 2020). The CKD-EPI equation should not be used for patients with unstable renal function and has not been validated in children and those over 70. Current interpretive data was last reviewed 2021. Testing performed by: [facility] [facility], [place], [address] Blood 03/08/2025 1:30 PM CLASSROOM MONITOR 03/08/2025 1:55 PM CLASSROOM MONITOR us Mamadou Chavez MD LAB BLOOD ORDERABLES Mary l Result [facility] 1 [facility] [place] [address] * (ABNORMAL) Differential, auto (03/08/2025 1:30 PM CLASSROOM MONITOR) Neutrophil abs 10.06(H) 1.50 - 6.50 K/cumm [facility]) Comment:Testing performed by : [facility] [address], Medical Office [facility] [address], [place] [address] Imm gran abs 0.03 0.00 - 0.10 K/cumm [facility]) Comment:Testing performed by : [facility] [address], Medical Office [facility] [address], [place] [address] Lymphocyte abs 1.23 0.80 - 3.30 K/cumm [facility]) Comment:Testing performed by : [facility] [address], Medical Office [facility] [address], [place] [address] Monocyte abs 0.64 0.20 - 0.80 K/cumm [facility]) Comment:Testing performed by : [facility] [address], Medical Office [facility] [address], [place] [address] Eosinophil abs 0.03 0.00 - 0.50 K/cumm [facility]) Comment:Testing performed by : [facility] [address], Medical Office [facility] [address], [place] [address] Basophil abs 0.06 0.00 - 0.10 K/cumm [facility]) Comment:Testing performed by : [facility] [address], Medical Office [facility] [address], [place] [address] Neutrophil pct 83.6 % [facility]) Comment: Interpretive Data Percent cell count reference ranges are not reported, since discordance with absolute values may lead to misinterpretation of CBC data. Current Interpretive Data was last revised on 2022. Testing performed by: [facility] [address], Medical Office [facility] [address], [place] [address] Imm gran pct 0.2 % [facility]) Comment: Interpretive Data Percent cell count reference ranges are not reported, since discordance with absolute values may lead to misinterpretation of CBC data. Current Interpretive Data was last revised on 2022. Testing performed by: [facility] [address], Medical Office [facility] [address], [place] [address] Lymphocyte pct 10.2 % [facility] ([place]) Comment: Interpretive Data Percent cell count reference ranges are not reported, since discordance with absolute values may lead to misinterpretation of CBC data. Current Interpretive Data was last revised on 2022. Testing performed by: [facility] [address], Medical Office [facility] [address], [place] [address] Monocyte pct 5.3 % [facility] ([place]) Comment: Interpretive Data Percent cell count reference ranges are not reported, since discordance with absolute values may lead to misinterpretation of CBC data. Current Interpretive Data was last revised on 2022. Testing performed by: [facility] [address], Medical Office [facility] [address], [place] [address] Eosinophil pct 0.2 % [facility] ([place]) Comment: Interpretive Data Percent cell count reference ranges are not reported, since discordance with absolute values may lead to misinterpretation of CBC data. Current Interpretive Data was last revised on 2022. Testing performed by: [facility] [address], Medical Office [facility] [address], [place] [address] Basophil pct 0.5 % [facility] ([place]) Comment: Interpretive Data Percent cell count reference ranges are not reported, since discordance with absolute values may lead to misinterpretation of CBC data. Current Interpretive Data was last revised on 2022. Testing performed by: [facility] [address], Medical Office [facility] [address], [place] [address] Blood 03/08/2025 1:30 PM CLASSROOM MONITOR 03/08/2025 1:36 PM CLASSROOM MONITOR us Mamadou Chavez MD LAB BLOOD ORDERABLES Mary bonilla Result [facility] ([place]) 1 [facility] [place] [address] * (ABNORMAL) CBC with auto differential (03/08/2025 1:30 PM CLASSROOM MONITOR) WBC 12.05(H) 3.80 - 9.90 K/cumm [facility] ([place]) Comment:Testing performed by : [facility] [address], Medical Office [address], [place] [address] Hgb 10.3(L) 11.9 - 15.5 g/dL [facility] ([place]) Comment:Testing performed by : [facility] [address], Medical Office [facility] [address], [place] [address] Hct 31.7(L) 35.6 - 45.5 % [facility] ([place]) Comment:Testing performed by : [facility] [address], Medical Office [facility] [address], [place] [address] Plt 457(H) 150 - 400 K/cumm [facility] ([place]) Comment:Testing performed by : [facility] [address], Medical Office [facility] [address], [place] [address] MPV 9.0(L) 9.1 - 12.3 fL [facility] ([place]) Comment:Testing performed by : [facility] [address], Medical Office [facility] [address], [place] [address] RBC 2.91(L) 3.90 - 5.20 M/cumm [facility] ([place]) Comment:Testing performed by : [facility] [address], Medical Office [facility] [address], [place] [address] MCV 108.9(H) 81.3 - 96.4 fL [facility] ([place]) Comment:Testing performed by : [facility] [address], Medical Office [facility] [address], [place] [address] MCH 35.4(H) 27.1 - 33.3 pg [facility] ([place]) Comment:Testing performed by : [facility] [address], Medical Office [address], [place] [address] MCHC 32.5 32.3 - 35.7 g/dL [facility] ([place]) Comment:Testing performed by : [facility] [address], Medical Office B[address], [place] [address] RDW CV 20.8(H) 11.1 - 14.9 % [facility] ([place]) Comment:Testing performed by : [facility] [address], Medical Office [address], [place] [address] RDW SD 81.9(H) 35.7 - 48.1 fL [facility] ([place]) Comment:Testing performed by : [facility] [address], Medical Office [facility] [address], [place] [address] Blood 03/08/2025 1:30 PM CLASSROOM MONITOR 03/08/2025 1:36 PM CLASSROOM MONITOR Narrative [facility] ([place]) - 03/08/2025 1:39 PM CLASSROOM MONITOR 01/17, 02/07, 02/28, 03/21 us Mamadou Chavez MD LAB BLOOD ORDERABLES Mary bonilla Result [facility] 1 [facility] [place] [address] * (ABNORMAL) Comprehensive metabolic panel (03/08/2025 1:30 PM CLASSROOM MONITOR) Sodium 138 135 - 145 mmol/L Comment:Testing performed by : [facility], [place], [address] Potassium, pl 4.9 3.3 - 4.9 mmol/L [facility] ([place]) Comment:Testing performed by : [facility], [place], [address] Chloride 99 97 - 110 mmol/L [facility] ([place]) Comment:Testing performed by : [facility], [place], [address] CO2 27 22 - 32 mmol/L [facility] ([place]) Comment:Testing performed by : [facility], [place], [address] Anion gap 12 2 - 15 mmol/L [facility] ([place]) Comment:Testing performed by : [facility], [place], [address] BUN 24 6 - 25 mg/dL [facility] ([place]) Comment:Testing performed by : [place], [address] Creatinine 1.38(H) 0.60 - 1.10 mg/dL [facility]) Comment:Testing performed by : [facility], [place], [address] Glucose 110 70 - 199 mg/dL [facility]) Comment: Interpretive Data Fasting glucose >/= 126 mg/dl is diagnostic for diabetes. Fasting is defined as no caloric intake for at least 8 hours. Fasting glucose between 100 mg/dl to 125 mg/dl is diagnostic of prediabetes. In a patient with classic symptoms of hyperglycemia or hyperglycemic crisis, a random glucose >/= 200 mg/dl is diagnostic for diabetes. In the absence of unequivocal hyperglycemia, results should be confirmed by repeat testing. The classification and Diagnosis of Diabetes Diabetes Care 2021; 46: S19-S40. Current interpretive data was last revised 2022. Testing performed by: [facility], [place], [address] Calcium 10.2 8.5 - 10.3 mg/dL [facility]) Comment:Testing performed by : [facility], [place], [address] Bilirubin, total 0.6 0.1 - 1.2 mg/dL [facility]) Comment:Testing performed by : [place], [address] Protein, pl 7.7 6.5 - 8.5 g/dL [facility]) Comment:Testing performed by : [place], [address] Albumin 4.6 3.5 - 5.0 g/dL [facility]) Comment:Testing performed by : [place], [address] Alk phos 89 40 - 130 Units/L [facility]) Comment:Testing performed by : [place], [address] ALT 11 7 - 45 Units/L [facility]) Comment:Testing performed by : [facility], [place], [address] AST 29 10 - 45 Units/L [facility]) Comment:Testing performed by : [place], [address] Blood 03/08/2025 1:30 PM CLASSROOM MONITOR 03/08/2025 1:55 PM CLASSROOM MONITOR Narrative [facility]) - 03/08/2025 2:19 PM CLASSROOM MONITOR 01/17, 02/07, 02/28, 03/21 us Mamadou Chavez MD LAB BLOOD ORDERABLES Mary l Result Performing Organization Address City/[facility]/ZIP Co de Phone Number [facility]) 1 [facility] [place] [address] * (ABNORMAL) eGFR (02/23/2025 2:44 AM CLASSROOM MONITOR) eGFR 55(L) >=60 mL/min/1. 73 m2 Comment: Interpretive Data Reference Interval Normal >/= 90 mL/min/1.73m2 Mildly decreased* 60 - 89 mL/min/1.73m2 Mildly to moderately decreased 45 - 59 mL/min/1.73m2 Moderately to severely decreased 30 - 44 mL/min/1.73m2 Severely decreased 15 - 29 mL/min/1.73m2 Kidney Failure < 15 mL/min/1.73m2 *Relative to young adult level Estimated glomerular filtration rate is determined by the 2020 CKD-EPI equation recommended by the National Kidney Foundation (A Unifying Approach to GFR Estimation: Recommendations of the NKF-ASK Task Force on Reassessing the Inclusion of Race in Diagnosing Kidney Disease, JASN 2020). The CKD-EPI equation should not be used for patients with unstable renal function and has not been validated in children and those over 70. Current interpretive data was last reviewed 2021. Blood 02/23/2025 2:44 AM CLASSROOM MONITOR 02/23/2025 3:21 AM CLASSROOM MONITOR us Cora MCFARLANE LAB BLOOD ORDERABLES Final Result Performing Organization Address City/[facility]/ZIP Co de Phone Number [facility] 1 [facility] [place] [address] * (ABNORMAL) CBC without differential (02/23/2025 2:44 AM CLASSROOM MONITOR) WBC 4.99 3.80 - 9.90 K/cumm Hgb 7.8(L) 11.9 - 15.5 g/dL [facility] ([place]) Hct 23.9(L) 35.6 - 45.5 % [facility] ([place]) Plt 194 150 - 400 K/cumm [facility] ([place]) MPV 9.0(L) 9.1 - 12.3 fL [facility] ([place]) RBC 2.25(L) 3.90 - 5.20 M/cumm [facility] ([place]) MCV 106.2(H) 81.3 - 96.4 fL [facility] ([place]) MCH 34.7(H) 27.1 - 33.3 pg [facility] ([place]) MCHC 32.6 32.3 - 35.7 g/dL [facility] ([place]) RDW CV 18.2(H) 11.1 - 14.9 % [facility] ([place]) RDW SD 68.6(H) 35.7 - 48.1 fL [facility] ([place]) NRBC abs 0.08(H) 0.00 - 0.01 K/cumm [facility] ([facility]) Blood 02/23/2025 2:44 AM CLASSROOM MONITOR 02/23/2025 3:21 AM CLASSROOM MONITOR us Cora MCFARLANE LAB BLOOD ORDERABLES Final Result [facility] ([place]) 1 [facility] [place] [address] * (ABNORMAL) Basic metabolic panel (02/23/2025 2:44 AM CLASSROOM MONITOR) Pathologist [facility] Sodium 140 135 - 145 mmol/L Potassium, pl 5.1(H) 3.3 - 4.9 mmol/L [facility] ([place]) Chloride 107 97 - 110 mmol/L [facility] ([place]) CO2 25 22 - 32 mmol/L [facility] ([place]) Anion gap 8 2 - 15 mmol/L [facility] ([place]) BUN 11 6 - 25 mg/dL [facility] ([place]) Creatinine 1.10 0.60 - 1.10 mg/dL [facility] ([place]) Glucose 94 70 - 199 mg/dL [facility] ([place]) Comment: Interpretive Data Fasting glucose >/= 126 mg/dl is diagnostic for diabetes. Fasting is defined as no caloric intake for at least 8 hours. Fasting glucose between 100 mg/dl to 125 mg/dl is diagnostic of prediabetes. In a patient with classic symptoms of hyperglycemia or hyperglycemic crisis, a random glucose >/= 200 mg/dl is diagnostic for diabetes. In the absence of unequivocal hyperglycemia, results should be confirmed by repeat testing. The classification and Diagnosis of Diabetes Diabetes Care 2021; 46: S19-S40. Current interpretive data was last revised 2022. Calcium 9.1 8.5 - 10.3 mg/dL [facility] ([place]) Blood 02/23/2025 2:44 AM CLASSROOM MONITOR 02/23/2025 3:21 AM CLASSROOM MONITOR Cora Taylor PA LAB BLOOD ORDERABLES Final Result [facility] 1 [facility] [email or web address] [place] [address] * Potassium (02/22/2025 8:01 PM CLASSROOM MONITOR) Potassium, pl 4.3 3.3 - 4.9 mmol/L Blood 02/22/2025 8:01 PM CLASSROOM MONITOR 02/22/2025 8:07 PM CLASSROOM MONITOR Narrative [facility] ([place]) - 02/22/2025 8:23 PM CLASSROOM MONITOR Provider to discontinue after two normal results. Jessica Finch MANNEQUIN MOLD MAKER LAB BLOOD ORDERABLES Fi nal Result [facility] ([place]) 1 [facility] [place] [address] * Potassium (02/22/2025 4:26 PM CLASSROOM MONITOR) Potassium, pl 4.2 3.3 - 4.9 mmol/L Blood 02/22/2025 4:26 PM CLASSROOM MONITOR 02/22/2025 4:28 PM CLASSROOM MONITOR Narrative [facility] ([place]) - 02/22/2025 4:42 PM CLASSROOM MONITOR Provider to discontinue after two normal results. Jessica Finch MANNEQUIN MOLD MAKER LAB BLOOD ORDERABLES Fi nal Result [facility] ([place]) [address] [facility] [place] [address] * Potassium (02/22/2025 1:24 PM CLASSROOM MONITOR) Potassium, pl 4.9 3.3 - 4.9 mmol/L Blood 02/22/2025 1:24 PM CLASSROOM MONITOR 02/22/2025 2:10 PM CLASSROOM MONITOR Narrative [facility] ([place]) - 02/22/2025 2:27 PM CLASSROOM MONITOR Provider to discontinue after two normal results. Jessica Finch MANNEQUIN MOLD MAKER LAB BLOOD ORDERABLES Fi nal Result [facility] [address] [facility] [place] [address] * Potassium (02/22/2025 9:42 AM CLASSROOM MONITOR) Potassium, pl 4.1 3.3 - 4.9 mmol/L Blood 02/22/2025 9:42 AM CLASSROOM MONITOR 02/22/2025 9:50 AM CLASSROOM MONITOR Narrative [facility] ([place]) - 02/22/2025 10:21 AM CLASSROOM MONITOR Provider to discontinue after two normal results. Jessica Finch MANNEQUIN MOLD MAKER LAB BLOOD ORDERABLES Fi nal Result [facility] ([place]) [address] [facility] [place] [address] * ECG 12 lead (02/22/2025 8:51 AM CLASSROOM MONITOR) 02/22/2025 8:51 AM CLASSROOM MONITOR Narrative [facility] - 02/22/2025 11:24 AM CLASSROOM MONITOR Vent Rate: 70 bpm RR Interval: 853 msec FL Interval: 191 msec QRS Duration: 87 msec QT Interval: 396 msec QTC Interval: 417 msec P-R-T [place]: 67 - 62 - 56 degrees IMPRESSION: SINUS RHYTHM POSSIBLE LEFT ATRIAL ENLARGEMENT [-0.1mV P WAVE IN V1/V2] LOW QRS VOLTAGE IN PRECORDIAL LEADS [QRS DEFLECTION < 1.0 mV IN CHEST LEADS] BORDERLINE ECG NO CHANGE FROM PREVIOUS TRACING NOTED Electronically Signed By: Juan Morgan MD us Jessica Finch MANNEQUIN MOLD MAKER ECG ORDERABLES Final R esult [facility] * (ABNORMAL) eGFR (02/22/2025 4:06 AM CLASSROOM MONITOR) eGFR 51(L) >=60 mL/min/1. 73 m2 Comment: Interpretive Data Reference Interval Normal >/= 90 mL/min/1.73m2 Mildly decreased* 60 - 89 mL/min/1.73m2 Mildly to moderately decreased 45 - 59 mL/min/1.73m2 Moderately to severely decreased 30 - 44 mL/min/1.73m2 Severely decreased 15 - 29 mL/min/1.73m2 Kidney Failure < 15 mL/min/1.73m2 *Relative to young adult level Estimated glomerular filtration rate is determined by the 2020 CKD-EPI equation recommended by the National Kidney Foundation (A Unifying Approach to GFR Estimation: Recommendations of the NKF-ASK Task Force on Reassessing the Inclusion of Race in Diagnosing Kidney Disease, JASN 2020). The CKD-EPI equation should not be used for patients with unstable renal function and has not been validated in children and those over 70. Current interpretive data was last reviewed 2021. Blood 02/22/2025 4:06 AM CLASSROOM MONITOR 02/22/2025 4:41 AM CLASSROOM MONITOR us Cora MCFARLANE LAB BLOOD ORDERABLES Final Result [facility] ([place]) 1 [facility] [place] [address] * (ABNORMAL) CBC without differential (02/22/2025 4:06 AM CLASSROOM MONITOR) [facility] WBC 7.59 3.80 - 9.90 K/cumm Hgb 8.3(L) 11.9 - 15.5 g/dL [facility] ([place]) Hct 24.9(L) 35.6 - 45.5 % [facility] ([place]) Plt 215 150 - 400 K/cumm [facility] ([place]) MPV 9.1 9.1 - 12.3 fL [facility] ([place]) RBC 2.37(L) 3.90 - 5.20 M/cumm [facility] ([place]) MCV 105.1(H) 81.3 - 96.4 fL [facility] ([place]) MCH 35.0(H) 27.1 - 33.3 pg [facility] ([place]) MCHC 33.3 32.3 - 35.7 g/dL [facility] ([place]) RDW CV 17.7(H) 11.1 - 14.9 % [facility] ([place]) RDW SD 64.8(H) 35.7 - 48.1 fL [facility] ([place]) NRBC abs 0.08(H) 0.00 - 0.01 K/cumm [facility] ([place]) Blood 02/22/2025 4:06 AM CLASSROOM MONITOR 02/22/2025 4:40 AM CLASSROOM MONITOR us Cora MCFARLANE LAB BLOOD ORDERABLES Final Result [facility] ([place]) 1 [facility] [place] [address] * (ABNORMAL) Basic metabolic panel (02/22/2025 4:06 AM CLASSROOM MONITOR) [facility] Sodium 136 135 - 145 mmol/L Potassium, pl 5.6(H) 3.3 - 4.9 mmol/L [facility] ([place]) Chloride 107 97 - 110 mmol/L [facility] ([place]) CO2 31 22 - 32 mmol/L [facility] ([place]) Anion gap -2(L) 2 - 15 mmol/L [facility] ([place]) BUN 16 6 - 25 mg/dL [facility] ([place]) Creatinine 1.18(H) 0.60 - 1.10 mg/dL [facility] ([place]) Glucose 107 70 - 199 mg/dL [facility] ([place]) Comment: Interpretive Data Fasting glucose >/= 126 mg/dl is diagnostic for diabetes. Fasting is defined as no caloric intake for at least 8 hours. Fasting glucose between 100 mg/dl to 125 mg/dl is diagnostic of prediabetes. In a patient with classic symptoms of hyperglycemia or hyperglycemic crisis, a random glucose >/= 200 mg/dl is diagnostic for diabetes. In the absence of unequivocal hyperglycemia, results should be confirmed by repeat testing. The classification and Diagnosis of Diabetes Diabetes Care 2021; 46: S19-S40. Current interpretive data was last revised 2022. Calcium 8.7 8.5 - 10.3 mg/dL [facility] Blood 02/22/2025 4:06 AM CLASSROOM MONITOR 02/22/2025 4:41 AM CLASSROOM MONITOR us Cora MCFARLANE LAB BLOOD ORDERABLES Final Result Performing Organization Address City/[facility]/ZIP Co de Phone Number [facility] ([place]) 1 [facility] [place] [address] * Rapid HIV 1/2 Ag/Ab Combo (02/21/2025 4:15 PM CLASSROOM MONITOR) HIV 1/2 Ag/Ab Rapid Nonreactive Nonreactive Blood 02/21/2025 4:15 PM CLASSROOM MONITOR 02/21/2025 5:03 PM CLASSROOM MONITOR us Sean De Los Santos MD LAB BLOOD ORDERABLES Final Re sult [facility] ([place]) 1 [facility] [place] [address] * Hepatitis C antibody Blood (02/21/2025 4:15 PM CLASSROOM MONITOR) Hep C Ab Nonreactive Nonreactive Comment: Interpretive Data Nonreactive: Antibodies to HCV not detected. Does NOT exclude the possibility of recent exposure to HCV. Equivocal: Equivocal for HCV antibodies. Supplemental molecular testing will be automatically performed to determine infection status in accordance with current CDC screening recommendations. Reactive: Positive for HCV antibodies. This may represent current or past HCV infection. Supplemental molecular testing will be automatically performed to determine current infection status in accordance with current CDC screening recommendations. Interpretive data was last revised on 2019. Testing performed by: [facility], [address] [place] [address]., [address] Blood 02/21/2025 4:15 PM CLASSROOM MONITOR 02/22/2025 7:40 AM CLASSROOM MONITOR Sean De Los Santos MD LAB MICROBIOLOGY - GENERAL OR DERABLES Final Result Performing Organization Address [facility] Co de Phone Number [facility] ([place]) 1 [facility] [place] [address] * Hepatitis B Surface Antigen Blood (02/21/2025 4:15 PM CLASSROOM MONITOR) HepBsAg Nonreactive Nonreactive Comment:Testing performed by : [facility], [address] [place] [address]., [id number] Blood 02/21/2025 4:15 PM CLASSROOM MONITOR 02/22/2025 7:40 AM CLASSROOM MONITOR Sean De Los Santos MD LAB MICROBIOLOGY - GENERAL OR DERABLES Final Result Performing Organization Address City/[facility] Co de Phone Number [facility] ([place]) 1 [facility] [place] [address] * XR Knee Right 1 or 2 View (02/21/2025 2:16 PM CLASSROOM MONITOR) Anatomical Region Laterality Modality Lower Extremities, Knee Right Computed Radiography 02/21/2025 4:08 PM CLASSROOM MONITOR Impressions 02/21/2025 4:08 PM CLASSROOM MONITOR Right total knee arthroplasty related changes are new when compared to the previous right knee radiographs dated 01/04/2025. Electronically signed by: Rashad Ulloa D.O. Narrative 02/21/2025 4:08 PM CLASSROOM MONITOR EXAMINATION: XR KNEE RIGHT 1 OR 2 VIEWS HISTORY:in pacu s/p right tka TECHNIQUE: Frontal and lateral view(s) of the right knee were obtained. COMPARISON:Right knee radiographs dated 01/04/2025. FINDINGS: Right total knee arthroplasty instrumentation is new when compared to the previous radiographs dated 01/04/2025. Adjacent soft tissue swelling and air is likely postoperative in nature. Procedure Note Rashad Ulloa DO - 02/21/2025 EXAMINATION: XR KNEE RIGHT 1 OR 2 VIEWS HISTORY:in pacu s/p right tka TECHNIQUE: Frontal and lateral view(s) of the right knee were obtained. COMPARISON:Right knee radiographs dated 01/04/2025. FINDINGS: Right total knee arthroplasty instrumentation is new when compared to the previous radiographs dated 01/04/2025. Adjacent soft tissue swelling and air is likely postoperative in nature. IMPRESSION: Right total knee arthroplasty related changes are new when compared to the previous right knee radiographs dated 01/04/2025. Electronically signed by: Rashad Ulloa D.O. Cora MCFARLANE IMG XR PROCEDURES Fin al Result * FL AN ELECTIVE ENDOTRACHEAL AIRWAY (02/21/2025 12:48 PM CLASSROOM MONITOR) Narrative Sherman Adam CRNA - 02/21/2025 12:48 PM CLASSROOM MONITOR Sherman Adam CRNA 02/21/2025 12:48 PM Airway Patient location: OR Urgency: elective Date/time: 02/21/2025 12:27 PM Indications for airway management: anesthesia and airway protection Difficult airway: no Staff: Placed by: APRYL: Sherman Adam CRNA Emergent airway documentation: Risks and benefits discussed: yes Consent obtained: yes Consent given by: patient Airway prep: Preoxygenated: yes Patient position: sniffing Mask difficulty assessment: 1 - vent by mask Spontaneous ventilation during airway: absent Sedation level during airway: GA Final airway details: Final airway type: endotracheal airway Tube type: ETT ETT size: 7.0 mm Cuffed: yes Technique used for successful ETT placement: video laryngoscopy Devices/Methods used in placement: intubating stylet Insertion site: oral Video blade type: Reilly Blade size: 3 Cormack-Lehane (video): grade I - full view of glottis Cuff volume: 6 mL Cuff inflated with: air ETT to lips: 21 cm Placement verified by: auscultation and CO2 detection Airway secured with: silk tape Number of attempts: 1 Additional comments: Atraumatic intubation. Dentition/lips same as preop us Mino Muhammad MD ANESTHESIA ORDERABLES Final Result * aPTT (02/21/2025 11:57 AM CLASSROOM MONITOR) aPTT 30 26 - 38 sec [facility]) Comment: Interpretive Data Heparin therapeutic range: 66.0 - 100.0 seconds. Range based on correlation with therapeutic heparin activity range of 0.3 - 0.7 Units/mL. Blood 02/21/2025 11:5 7 AM CLASSROOM MONITOR 02/21/2025 11:58 AM CLASSROOM MONITOR us Yaya Irvin MD LAB BLOOD ORDERABLES Fin al Result [facility] 1 [facility] [place] [address] * Protime-INR (02/21/2025 11:57 AM CLASSROOM MONITOR) PT 11.4 10.2 - 13.5 sec [facility]) INR 1.01 0.90 - 1.20 [facility] Comment: Interpretive data Oral anticoagulant therapeutic ranges: Venous thromboembolism prophylaxis or treatment: 2.0-3.0 CARDIOLOGY Standard range: 2.0-3.0 High-intensity range: 2.5-3.5 Refer to indication-specific guidelines for appropriate target ranges for prosthetic heart valve replacement. Current interpretive data was last revised on 2019. Blood 02/21/2025 11:5 7 AM CLASSROOM MONITOR 02/21/2025 11:58 AM CLASSROOM MONITOR us Yaya Irvin MD LAB BLOOD ORDERABLES Fin al Result [facility]) [address] [place] [address] Department [place] [address] * Surgical pathology (02/21/2025 9:14 AM CLASSROOM MONITOR) Tissue (Bone Fragment(s),) 02/21/2025 1:08 PM CLASSROOM MONITOR Narrative PATHOLOGY [facility] - 03/01/2025 9:45 AM CLASSROOM MONITOR EPIC results best viewed via link to PDF [facility] Department of Pathology [address] [place] [id number] Note to Patients: This report may contain a detailed description of human tissue sent by a health care provider to the laboratory for pathologic evaluation. The content of this report is essential for diagnosis and may provide important critical findings. This information may be unfamiliar to patients to review without a medical professional present. It is advised that the patient review this report in the presence of a health care provider who can answer questions and explain the details. Final Report Patient Name: SREEDHAR RODRIGUEZ Address: [address] [place] [address] Gender: F : 1960 (Age: 65) Service: Surgery Location: [facility] Hospital #: [id number] Patient Type: [facility] Taken: 02/21/2025 Received: 02/22/2025 Accessioned: 02/22/2025 Reported: 03/01/2025 Physician(s):Dr. Yaya Irvin M.D. Diagnosis: Bone and soft tissue, right total knee arthroplasty: - Histologic changes consistent with degenerative joint disease. Celso Montalvo MD Report Electronically Reviewed and Signed Out By Celso Montalvo MD 03/01/2025 09:45:42 Specimen(s) Received: A: Bone and tissue fragments right knee Microscopic Description: A decalcified section shows erosion and destruction of the articular cartilage. The marrow space appears fatty without significant hematopoietic marrow elements. Also seen are benign-appearing fragments of soft tissue, partially lined by bland synovium. There is no evidence of malignancy. The histologic changes are consistent with the clinical impression of degenerative joint disease. Clinical History: Osteoarthritis of right knee. Right total knee arthroplasty. Gross Description: The container is labeled SREEDHAR RODRIGUEZ and bone and tissue fragments-right knee. It is a a 8.2 x 7.1 x 3.9 cm in aggregate of irregularly-shaped fragments of bone and an approximate 6 cc aggregate of soft tissue consisting of adipose tissue, portions of menisci and some synovium. Recognizable pieces of bone include the tibial plateau and portions of femoral condyles. Some of the bone fragments are covered by articular cartilage showing varying degrees of degenerative changes that include eburnation and roughened granularity. Decalcified and represented in two cassettes. Tristan Rain/Janice Simeon M.D. REPORT IMAGES AND SCANNED DOCUMENTS, IF INCLUDED, ONLY VIEWABLE IN PDF VERSION OF REPORT The performance characteristics of some immunohistochemical stains, fluorescence in-situ hybridization tests and immunophenotyping by flow cytometry cited in this report (if any) were determined by the Surgical Pathology Department at [facility] as part of an ongoing quality assurance engineer program and in compliance with federally mandated regulations drawn from the Clinical Laboratory Improvement Act of 1988 (CLIA '88). Some of these tests rely on the use of analyte specific reagents and are subject to specific labeling requirements by the US Food and Drug Administration. Such diagnostic tests may only be performed in a facility that is certified by the Department of Health and Human Services as a high complexity laboratory under CLIA '88. The FDA has determined that such clearance or approval is not necessary. This test is used for clinical purposes. It should not be regarded as investigational or for research. Nevertheless, federal rules concerning the medical use of analyte specific reagents require that the following disclaimer be attached to the report: This test was developed and its performance characteristics determined by the Surgical Pathology Department [facility]. It has not been cleared or approved by the U. S. Food and Drug Administration. Note for decalcified specimens: This assay has not been validated on decalcified tissues. Results should be interpreted with caution given the possibility of false negativity on decalcified specimens us Yaya Irvin MD LAB PATHOLOGY ORDERABLES Final Result PATHOLOGY [facility]) [address] [place] [address] * XR Chest Pa Lateral 2 Views (02/09/2025 3:32 PM CLASSROOM MONITOR) Anatomical Region Laterality Modality Body, Chest N/A Computed Radiogr aphy 02/10/2025 9:28 AM CLASSROOM MONITOR Impressions 02/10/2025 9:28 AM CLASSROOM MONITOR No radiographic evidence of an acute cardiopulmonary abnormality. Electronically signed by: Luis Montez M.D. Narrative 02/10/2025 9:28 AM CLASSROOM MONITOR EXAMINATION: XR CHEST PA LATERAL 2 VIEWS. TECHNIQUE: Two radiographic views of the chest. HISTORY: Pre op testing COMPARISON: 02/03/2025 FINDINGS: Support devices: Left chest wall probable inspire sleep apnea device extends to left neck. Lungs: Calcified pulmonary nodules which likely reflect sequela of prior granulomatous disease. No focal consolidation, pneumothorax, or pleural effusion. Heart/Mediastinum: Unchanged cardiomediastinal contours. Bones/Soft Tissues: Scoliotic curvature of the spine. No acute displaced fracture. Multilevel degenerative changes of the spine. Vascular calcifications. Procedure Note Luis Montez MD - 02/10/2025 EXAMINATION: XR CHEST PA LATERAL 2 VIEWS. TECHNIQUE: Two radiographic views of the chest. HISTORY: Pre op testing COMPARISON: 02/03/2025 FINDINGS: Support devices: Left chest wall probable inspire sleep apnea device extends to left neck. Lungs: Calcified pulmonary nodules which likely reflect sequela of prior granulomatous disease. No focal consolidation, pneumothorax, or pleural effusion. Heart/Mediastinum: Unchanged cardiomediastinal contours. Bones/Soft Tissues: Scoliotic curvature of the spine. No acute displaced fracture. Multilevel degenerative changes of the spine. Vascular calcifications. IMPRESSION: No radiographic evidence of an acute cardiopulmonary abnormality. Electronically signed by: Luis Montez M.D. Yaya Irvin MD IMG XR PROCEDURES Final Result * ECG 12 lead (02/09/2025 3:00 PM CLASSROOM MONITOR) 02/09/2025 2:57 PM CLASSROOM MONITOR Narrative [facility] - 02/10/2025 10:39 AM CLASSROOM MONITOR Vent Rate: 70 bpm RR Interval: 852 msec FL Interval: 185 msec QRS Duration: 103 msec QT Interval: 416 msec QTC Interval: 437 msec P-R-T [place]: 75 - 75 - 76 degrees IMPRESSION: SINUS RHYTHM POSSIBLE LEFT ATRIAL ENLARGEMENT [-0.1mV P-WAVE IN V1/V2] MINIMAL ST DEPRESSION [0.025+ mV ST DEPRESSION] BORDERLINE ECG No change compared to prior EKG Electronically Signed By: Joshua Beth MD us Yaya Irvin MD ECG ORDERABLES Final Re sult [employer] [facility] * (ABNORMAL) eGFR (02/09/2025 2:38 PM CLASSROOM MONITOR) eGFR 39(L) >=60 mL/min/1. 73 m2 Comment: Interpretive Data Reference Interval Normal >/= 90 mL/min/1.73m2 Mildly decreased* 60 - 89 mL/min/1.73m2 Mildly to moderately decreased 45 - 59 mL/min/1.73m2 Moderately to severely decreased 30 - 44 mL/min/1.73m2 Severely decreased 15 - 29 mL/min/1.73m2 Kidney Failure < 15 mL/min/1.73m2 *Relative to young adult level Estimated glomerular filtration rate is determined by the 2020 CKD-EPI equation recommended by the National Kidney Foundation (A Unifying Approach to GFR Estimation: Recommendations of the NKF-ASK Task Force on Reassessing the Inclusion of Race in Diagnosing Kidney Disease, JASN 2020). The CKD-EPI equation should not be used for patients with unstable renal function and has not been validated in children and those over 70. Current interpretive data was last reviewed 2021. Blood 02/09/2025 2:38 PM CLASSROOM MONITOR 02/09/2025 3:15 PM CLASSROOM MONITOR us Yaya Irvin MD LAB BLOOD ORDERABLES Fin al Result [facility] 1 [facility] Department of Laboratories [place], [place] [id number] * (ABNORMAL) Differential, auto (02/09/2025 2:38 PM CLASSROOM MONITOR) Neutrophil abs 6.80(H) 1.50 - 6.50 K/cumm Imm gran abs 0.12(H) 0.00 - 0.10 K/cumm [facility] ([place]) Lymphocyte abs 2.31 0.80 - 3.30 K/cumm [facility] ([place]) Monocyte abs 0.65 0.20 - 0.80 K/cumm [facility] ([place]) Eosinophil abs 0.10 0.00 - 0.50 K/cumm [facility] ([place]) Basophil abs 0.08 0.00 - 0.10 K/cumm [facility] ([place]) Neutrophil pct 67.5 % [facility] ([place]) Comment: Interpretive Data Percent cell count reference ranges are not reported, since discordance with absolute values may lead to misinterpretation of CBC data. Current Interpretive Data was last revised on 2017. Imm gran pct 1.2 % [facility] ([place]) Comment: Interpretive Data Percent cell count reference ranges are not reported, since discordance with absolute values may lead to misinterpretation of CBC data. Current Interpretive Data was last revised on 2017. Lymphocyte pct 23.0 % [facility]) Comment: Interpretive Data Percent cell count reference ranges are not reported, since discordance with absolute values may lead to misinterpretation of CBC data. Current Interpretive Data was last revised on 2017. Monocyte pct 6.5 % [facility]) Comment: Interpretive Data Percent cell count reference ranges are not reported, since discordance with absolute values may lead to misinterpretation of CBC data. Current Interpretive Data was last revised on 2017. Eosinophil pct 1.0 % [facility]) Comment: Interpretive Data Percent cell count reference ranges are not reported, since discordance with absolute values may lead to misinterpretation of CBC data. Current Interpretive Data was last revised on 2017. Basophil pct 0.8 % [facility]) Comment: Interpretive Data Percent cell count reference ranges are not reported, since discordance with absolute values may lead to misinterpretation of CBC data. Current Interpretive Data was last revised on 2017. Blood 02/09/2025 2:38 PM CLASSROOM MONITOR 02/09/2025 3:15 PM CLASSROOM MONITOR us Yaya Irvin MD LAB BLOOD ORDERABLES Fin al Result Performing Organization Address City/[facility]/ZIP Co de Phone Number [facility] 1 [facility] Department [place] [address] * (ABNORMAL) Urinalysis reflex to microscopic and culture Urine, clean voided (02/09/2025 2:38 PM CLASSROOM MONITOR) Color, ur Yellow Yellow Clarity, ur Turbid(A) Clear [facility] ([place]) Specific gravity, ur 1.028 1.003 - 1.030 [facility] ([place]) pH, urine 7.0 [facility] ([place]) Comment: Interpretive Data U rine pH is affected by diet, medications, systemic acid-base disturbances, and renal tubular function. pH may affect urinary stone formation. For example, urine pH below 6.0 may help reduce the tendency for calcium phosphate stones and pH greater than 6.0 may reduce the tendency for uric acid stone formation. Source: [facility] [employer] Current Interpretive Data was last revised on 2017 Protein, ur ql 1+(A) Negative [facility] ([place]) Glucose, ur ql Negative Negative [facility]) Ketones, ur Negative Negative [facility] ([place]) Bilirubin, ur Negative Negative [facility] ([place]) Blood, ur Trace(A) Negative [facility] ([place]) Urobilinogen, ur <2.0 <2.0 mg/dL [facility] ([place]) Nitrite, ur Negative Negative [facility] ([place]) Leukocyte esterase, ur 1+(A) Negative [facility] ([place]) UA reflex comment Reflex to microscopic UA will be performed. [facility] ([place]) Urine, clean voided 02/09/2025 2:38 PM CLASSROOM MONITOR 02/09/2025 3:13 PM CLASSROOM MONITOR us Yaya Irvin MD LAB MICROBIOLOGY - GENER AL ORDERABLES Final Result [facility] 1 [facility] [place] [address] * (ABNORMAL) CBC with auto differential (02/09/2025 2:38 PM CLASSROOM MONITOR) Pathologist [facility] WBC 10.06(H) 3.80 - 9.90 K/cumm Hgb 10.0(L) 11.9 - 15.5 g/dL [facility]) Hct 29.8(L) 35.6 - 45.5 % [facility] ([place]) Plt 445(H) 150 - 400 K/cumm [facility] ([place]) MPV 9.3 9.1 - 12.3 fL [facility] ([place]) RBC 2.84(L) 3.90 - 5.20 M/cumm [facility] ([place]) MCV 104.9(H) 81.3 - 96.4 fL [facility]) MCH 35.2(H) 27.1 - 33.3 pg [facility] ([place]) MCHC 33.6 32.3 - 35.7 g/dL [facility] ([place]) RDW CV 16.9(H) 11.1 - 14.9 % [facility]) RDW SD 62.3(H) 35.7 - 48.1 fL [facility]) NRBC abs 0.04(H) 0.00 - 0.01 K/cumm [facility]) Blood 02/09/2025 2:38 PM CLASSROOM MONITOR 02/09/2025 3:15 PM CLASSROOM MONITOR us Yaya Irvin MD LAB BLOOD ORDERABLES Fin al Result [facility] 1 [facility] [place] [address] * (ABNORMAL) Urinalysis, microscopic only (02/09/2025 2:38 PM CLASSROOM MONITOR) Pathologist [facility] WBC, ur 0-5 0 - 5 /HPF RBC, ur 3-5(A) 0 - 2 /HPF [facility] Epithelial cells, squamous, ur 11-20(A) 0 - 5 /HPF [facility] ([place]) Bacteria, ur 1+(A) [facility] ([place]) Mucous, ur Present(A) [facility] ([place]) Hyaline casts, ur 1-5 0 - 10 /LPF [facility] ([place]) Culture Reflex Comment Reflex conditions for urine culture (WBC >10) not met. [facility] ([place]) Urine, clean voided 02/09/2025 2:38 PM CLASSROOM MONITOR 02/09/2025 3:13 PM CLASSROOM MONITOR Yaya Irvin MD LAB URINE ORDERABLES Fin al Result Performing Organization Address [facility] Co de Phone Number [facility] ([place]) 1 [facility] [place] [address] * Hemoglobin A1c (02/09/2025 2:38 PM CLASSROOM MONITOR) Pathologist [facility] Hgb A1C 5.6 4.0 - 5.6 % Estimated Average Glucose 114 mg/dL [facility] ([place]) Comment: The ADA recommends reporting an estimated Average Glucose (eAG) with all Hemoglobin A1c results using the equation derived from a study of 507 normal and diabetic adults. Minority populations were underrepresented and children were not included. (Diabetes Care 31:5736-2469, 2008). The eAG is not equivalent to a fasting glucose. Blood 02/09/2025 2:38 PM CLASSROOM MONITOR 02/09/2025 3:15 PM CLASSROOM MONITOR Yaya Irvin MD LAB BLOOD ORDERABLES Fin al Result Performing Organization Address City/[facility]/ZIP Co de Phone Number [facility] ([place]) 1 [facility] [place] [address] * (ABNORMAL) Comprehensive metabolic panel (02/09/2025 2:38 PM CLASSROOM MONITOR) Sodium 140 135 - 145 mmol/L Potassium, pl 5.0(H) 3.3 - 4.9 mmol/L [facility] ([place]) Chloride 104 97 - 110 mmol/L [facility]) CO2 28 22 - 32 mmol/L [facility] Anion gap 8 2 - 15 mmol/L [facility]) BUN 15 6 - 25 mg/dL [facility]) Creatinine 1.46(H) 0.60 - 1.10 mg/dL [facility]) Glucose 93 70 - 199 mg/dL [facility] Comment: Interpretive Data Fasting glucose >/= 126 mg/dl is diagnostic for diabetes. Fasting is defined as no caloric intake for at least 8 hours. Fasting glucose between 100 mg/dl to 125 mg/dl is diagnostic of prediabetes. In a patient with classic symptoms of hyperglycemia or hyperglycemic crisis, a random glucose >/= 200 mg/dl is diagnostic for diabetes. In the absence of unequivocal hyperglycemia, results should be confirmed by repeat testing. The classification and Diagnosis of Diabetes Diabetes Care 202; 46: S19-S40. Current interpretive data was last revised 2022. Calcium 9.6 8.5 - 10.3 mg/dL [facility]) Bilirubin, total 0.2 0.1 - 1.2 mg/dL [facility]) Protein, pl 7.0 6.5 - 8.5 g/dL [facility]) Albumin 4.2 3.5 - 5.0 g/dL [facility]) Alk phos 73 40 - 130 Units/L [facility]) ALT 12 7 - 45 Units/L [facility] AST 21 10 - 45 Units/L [facility]) Blood 02/09/2025 2:38 PM CLASSROOM MONITOR 02/09/2025 3:15 PM CLASSROOM MONITOR us Yaya Irvin MD LAB BLOOD ORDERABLES Fin al Result [facility] 1 [facility] [place] [address] * (ABNORMAL) eGFR (02/07/2025 8:10 AM CLASSROOM MONITOR) eGFR 36(L) >=60 mL/min/1. 73 m2 Comment: Interpretive Data Reference Interval Normal >/= 90 mL/min/1.73m2 Mildly decreased* 60 - 89 mL/min/1.73m2 Mildly to moderately decreased 45 - 59 mL/min/1.73m2 Moderately to severely decreased 30 - 44 mL/min/1.73m2 Severely decreased 15 - 29 mL/min/1.73m2 Kidney Failure < 15 mL/min/1.73m2 *Relative to young adult level Estimated glomerular filtration rate is determined by the 2020 CKD-EPI equation recommended by the National Kidney Foundation (A Unifying Approach to GFR Estimation: Recommendations of the NKF-ASK Task Force on Reassessing the Inclusion of Race in Diagnosing Kidney Disease, JASN 2020). The CKD-EPI equation should not be used for patients with unstable renal function and has not been validated in children and those over 70. Current interpretive data was last reviewed 2021. Testing performed by: [facility], [facility], [place], [address] Blood 02/07/2025 8:10 AM CLASSROOM MONITOR 02/07/2025 8:23 AM CLASSROOM MONITOR us Mamadou Chavez MD LAB BLOOD ORDERABLES Mary l Result [facility] 1 [facility] [place] [address] * (ABNORMAL) Differential, auto (02/07/2025 8:10 AM CLASSROOM MONITOR) Neutrophil abs 10.87(H) 1.50 - 6.50 K/cumm [facility]) Comment:Testing performed by : [facility] [address], Medical Office [facility] [address], [place] [address] Imm gran abs 0.14(H) 0.00 - 0.10 K/cumm [facility]) Comment:Testing performed by : [facility] [address], Medical Office [facility] [address], [place] [address] Lymphocyte abs 1.94 0.80 - 3.30 K/cumm [facility]) Comment:Testing performed by : [facility] [address], Medical Office [facility] [address], [place] [address] Monocyte abs 0.82(H) 0.20 - 0.80 K/cumm [facility]) Comment:Testing performed by : [facility] [address], Medical Office [facility] [address], [place] [address] Eosinophil abs 0.10 0.00 - 0.50 K/cumm [facility] ([place]) Comment:Testing performed by : [facility] [address], Medical Office [facility] [address] [facility] [address], [place] [address] Basophil abs 0.03 0.00 - 0.10 K/cumm [facility] ([place]) Comment:Testing performed by : [facility] [address], Medical Office [facility] [address], [place] [address] Neutrophil pct 78.2 % [facility] Comment: Interpretive Data Percent cell count reference ranges are not reported, since discordance with absolute values may lead to misinterpretation of CBC data. Current Interpretive Data was last revised on 2022. Testing performed by: [facility] [address], Medical Office [facility] [address], [place] [address] Imm gran pct 1.0 % [facility]) Comment: Interpretive Data Percent cell count reference ranges are not reported, since discordance with absolute values may lead to misinterpretation of CBC data. Current Interpretive Data was last revised on 2022. Testing performed by: [facility] [address], Medical Office [facility] [address], [place] [address] Lymphocyte pct 14.0 % [facility] Comment: Interpretive Data Percent cell count reference ranges are not reported, since discordance with absolute values may lead to misinterpretation of CBC data. Current Interpretive Data was last revised on 2022. Testing performed by: [facility] [address], Medical Office [facility] B [facility] [address], [place] [address] Monocyte pct 5.9 % [facility]) Comment: Interpretive Data Percent cell count reference ranges are not reported, since discordance with absolute values may lead to misinterpretation of CBC data. Current Interpretive Data was last revised on 2022. Testing performed by: [facility] [address], Medical Office [facility] B [facility] [address], [place] [address] Eosinophil pct 0.7 % [facility] ([place]) Comment: Interpretive Data Percent cell count reference ranges are not reported, since discordance with absolute values may lead to misinterpretation of CBC data. Current Interpretive Data was last revised on 2022. Testing performed by: [facility] [address], Medical Office [facility] [address], [place] [address] Basophil pct 0.2 % [facility] ([place]) Comment: Interpretive Data Percent cell count reference ranges are not reported, since discordance with absolute values may lead to misinterpretation of CBC data. Current Interpretive Data was last revised on 2022. Testing performed by: [facility] [address], Medical Office [facility] [address], [place] [address] Blood 02/07/2025 8:10 AM CLASSROOM MONITOR 02/07/2025 8:17 AM CLASSROOM MONITOR us Mamadou Chavez MD LAB BLOOD ORDERABLES Mary bonilla Result [facility] 1 [facility] [place] [address] * (ABNORMAL) CBC with auto differential (02/07/2025 8:10 AM CLASSROOM MONITOR) WBC 13.90(H) 3.80 - 9.90 K/cumm [facility]) Comment:Testing performed by : [facility] [address], Medical Office [facility] [address], [place] [address] Hgb 10.1(L) 11.9 - 15.5 g/dL [facility]) Comment:Testing performed by : [facility] [address], Medical Office [facility] [address], [place] [address] Hct 30.8(L) 35.6 - 45.5 % [facility]) Comment:Testing performed by : [facility] [address], Medical Office [facility] [address], [place] [address] Plt 401(H) 150 - 400 K/cumm [facility] ([place]) Comment:Testing performed by : [facility] [address], Medical Office [facility] [address], [place] [address] MPV 9.0(L) 9.1 - 12.3 fL [facility] ([place]) Comment:Testing performed by : [facility] [address], Medical Office [facility] [address], [place] [address] RBC 2.91(L) 3.90 - 5.20 M/cumm [facility] ([place]) Comment:Testing performed by : [facility] [address], Medical Office [facility] [address], [place] [address] MCV 105.8(H) 81.3 - 96.4 fL [facility] ([place]) Comment:Testing performed by : [facility] [address], Medical Office [facility] [address], [place] [address] MCH 34.7(H) 27.1 - 33.3 pg [facility] ([place]) Comment:Testing performed by : [facility] [address], Medical Office [facility] [address], [place] [address] MCHC 32.8 32.3 - 35.7 g/dL [facility] ([place]) Comment:Testing performed by : [facility] [address], Medical Office [facility] [address], [place] [address] RDW CV 16.8(H) 11.1 - 14.9 % [facility] ([place]) Comment:Testing performed by : [facility] [address], Medical Office [facility] [address] [facility] [address], [place] [address] RDW SD 63.1(H) 35.7 - 48.1 fL [facility] ([place]) Comment:Testing performed by : [facility] [address], Medical Office [facility] [address], [place] [address] Blood 02/07/2025 8:10 AM CLASSROOM MONITOR 02/07/2025 8:17 AM CLASSROOM MONITOR Narrative [facility] ([place]) - 02/07/2025 8:25 AM CLASSROOM MONITOR 01/17, 02/07, 02/28, 03/21 us Mamadou Chavez MD LAB BLOOD ORDERABLES Mary bonilla Result [facility] 1 [facility] Department [place] [address] * (ABNORMAL) Comprehensive metabolic panel (02/07/2025 8:10 AM CLASSROOM MONITOR) Sodium 138 135 - 145 mmol/L Comment:Testing performed by : [facility], [place], [address] Potassium, pl 4.7 3.3 - 4.9 mmol/L [facility] ([facility]) Comment:Testing performed by : [place], [address] Chloride 102 97 - 110 mmol/L [facility]) Comment:Testing performed by : [facility], [place], [address] CO2 27 22 - 32 mmol/L [facility] ([place]) Comment:Testing performed by : [facility], [place], [address] Anion gap 9 2 - 15 mmol/L [facility]) Comment:Testing performed by : [facility], [place], [address] BUN 17 6 - 25 mg/dL [facility]) Comment:Testing performed by : [facility], [place], [address] Creatinine 1.55(H) 0.60 - 1.10 mg/dL [facility] ([place]) Comment:Testing performed by : [facility], [place], [address] Glucose 103 70 - 199 mg/dL [facility]) Comment: Interpretive Data Fasting glucose >/= 126 mg/dl is diagnostic for diabetes. Fasting is defined as no caloric intake for at least 8 hours. Fasting glucose between 100 mg/dl to 125 mg/dl is diagnostic of prediabetes. In a patient with classic symptoms of hyperglycemia or hyperglycemic crisis, a random glucose >/= 200 mg/dl is diagnostic for diabetes. In the absence of unequivocal hyperglycemia, results should be confirmed by repeat testing. The classification and Diagnosis of Diabetes Diabetes Care 2021; 46: S19-S40. Current interpretive data was last revised 2022. Testing performed by: [facility], [place], [address] Calcium 9.3 8.5 - 10.3 mg/dL [facility]) Comment:Testing performed by : [facility], [place], [address] Bilirubin, total 0.2 0.1 - 1.2 mg/dL [facility]) Comment:Testing performed by : [facility], [place], [address] Protein, pl 6.7 6.5 - 8.5 g/dL [facility]) Comment:Testing performed by : [facility], [place], [address] Albumin 4.1 3.5 - 5.0 g/dL [facility]) Comment:Testing performed by : [facility], [place], [address] Alk phos 64 40 - 130 Units/L [facility]) Comment:Testing performed by : [facility], [place], [address] ALT 11 7 - 45 Units/L [facility]) Comment:Testing performed by : [facility], [place], [address] AST 21 10 - 45 Units/L [facility]) Comment:Testing performed by : [facility], [place], [address] Blood 02/07/2025 8:10 AM CLASSROOM MONITOR 02/07/2025 8:23 AM CLASSROOM MONITOR Narrative [facility] - 02/07/2025 8:45 AM CLASSROOM MONITOR 01/17, 02/07, 02/28, 03/21 us Mamadou Chavez MD LAB BLOOD ORDERABLES Mary bonilla Result [facility] ([facility]) 1 [facility] Department [place] [address] * Urinalysis reflex to microscopic and culture Urine (02/03/2025 2:03 PM CLASSROOM MONITOR) Color, ur Yellow Yellow Clarity, ur Clear Clear [facility] Specific gravity, ur 1.049 1.003 - 1.030 [facility] pH, urine 7.0 [facility] Comment: Interpretive Data U rine pH is affected by diet, medications, systemic acid-base disturbances, and renal tubular function. pH may affect urinary stone formation. For example, urine pH below 6.0 may help reduce the tendency for calcium phosphate stones and pH greater than 6.0 may reduce the tendency for uric acid stone formation. Source: [facility] Current Interpretive Data was last revised on 2017 Protein, ur ql Trace Negative [facility] Glucose, ur ql Negative Negative [facility] Ketones, ur Negative Negative [facility] Bilirubin, ur Negative Negative [facility] Blood, ur Negative Negative [facility] Urobilinogen, ur <2.0 <2.0 mg/dL [facility] Nitrite, ur Negative Negative [facility] Leukocyte esterase, ur Negative Negative [facility] UA reflex comment Reflex conditions for microscopic UA and culture not met. [facility] Urine 02/03/2025 2:03 PM CLASSROOM MONITOR 02/03/2025 2:06 PM CLASSROOM MONITOR Allan Acosta MD LAB MICROBIOLOGY - GENERA L ORDERABLES Final Result [facility] [address] Department [place] [address] * (ABNORMAL) Troponin T high-sensitivity 2-hour (02/03/2025 1:40 PM CLASSROOM MONITOR) Trop T hs 18(H) <=14 ng/L Comment: Interpretive Data For further hscTnT resources including the diagnostic algorithm and an aid in interpretation, copy and paste this link: https://nrl.testcatalog.org/show/hsTrop Current Interpretive Data last revised 2020. Trop T hs delta 0 ng/L [facility] Trop T hs interp Insignificant [facility] Blood 02/03/2025 1:40 PM CLASSROOM MONITOR 02/03/2025 1:44 PM CLASSROOM MONITOR Allan Acosta MD LAB BLOOD ORDERABLES Mary l Result [facility] [address] [place] [address] * Lacosamide level (02/03/2025 1:40 PM CLASSROOM MONITOR) [facility] Lacosamide 7.6 1.0 - 10.0 mcg/mL [facility] Comment: ADDITIONAL INFORMATION This test was developed and its performance characteristics determined by [facility] in a manner consistent with CLIA requirements. This test has not been cleared or approved by the U.S. Food and Drug Administration. Test Performed by: [place] [address] Trimmer Operator [employer] Knife: Chandler Freeman Ph.D.; CLIA# [id number] Blood 02/03/2025 1:40 PM CLASSROOM MONITOR 02/03/2025 1:43 PM CLASSROOM MONITOR us Allan Acosta MD LAB BLOOD ORDERABLES Mary bonilla Result [facility] [address] [place] [address] [facility] * Respiratory pathogen panel Nasopharyngeal (02/03/2025 1:40 PM CLASSROOM MONITOR) [facility] Influenza A RNA Not Detected Not Detected Influenza B RNA Not Detected Not Detected [facility] RSV RNA Not Detected Not Detected [facility] COVID-19 RNA Not Detected Not Detected [facility] Coronavirus 229E RNA Not Detected Not Detected [facility] Coronavirus HKU1 RNA Not Detected Not Detected [facility] Coronavirus NL63 RNA Not Detected Not Detected [facility] Coronavirus OC43 RNA Not Detected Not Detected [facility] Adenovirus DNA Not Detected Not Detected [facility] Metapneumovirus RNA Not Detected Not Detected [facility] Rhinovirus/Enterov irus RNA Not Detected Not Detected [facility] Parainfluenza 1 RNA Not Detected Not Detected [facility] Parainfluenza 2 RNA Not Detected Not Detected [facility] Parainfluenza 3 RNA Not Detected Not Detected [facility] Parainfluenza 4 RNA Not Detected Not Detected [facility] B. pertussis DNA Not Detected Not Detected [facility] B. parapertussis DNA Not Detected Not Detected [facility] C. pneumoniae DNA Not Detected Not Detected [facility] M. pneumoniae DNA Not Detected Not Detected [facility] Comment: Interpretive Data The [employer] FilmArray Respiratory Panel (RP2.1) assay is a multiplexed real-time PCR based nucleic acid test capable of simultaneous qualitative detection and identification of multiple respiratory viral and bacterial nucleic acids, including SARS Coronavirus 2 (the causative agent of COVID-19). The following bacteria, viruses and virus subtypes can be identified using the FilmArray RP2.1 assay: Bordetella pertussis, Bordetella parapertussis, Chlamydia pneumoniae, Mycoplasma pneumoniae, Adenovirus, SARS Coronavirus 2, seasonal coronaviruses (Coronavirus HKU1, Coronavirus NL63, Coronavirus 229E, and Coronavirus OC43), Influenza A, Influenza A subtype H1, Influenza A subtype H3, Influenza A subtype 2009 H1, Influenza B, Metapneumovirus, Parainfluenza 1, Parainfluenza 2, Parainfluenza 3, Parainfluenza 4, RSV, Rhinovirus/Enterovirus. Due to the genetic similarity between human Rhinovirus and Enterovirus, the FilmArray RP2.1 assay cannot reliably differentiate them. Coronavirus OC43 may cross-react with some isolates of Coronavirus HKU1. A dual positive result may be due to cross-reactivity or may indicate a co- infection. The detection and identification of specific viral and bacterial nucleic acids from individuals exhibiting signs and symptoms of a respiratory infection aids in the diagnosis of respiratory infection if used in conjunction with other clinical and epidemiological information. The results of this test should not be used as the sole basis for diagnosis, treatment, or other management decisions. Negative results in the setting of a respiratory illness may be due to infection with pathogens that are not detected by this test. Positive results do not rule out infection/co-infection with other organisms. The agent(s) detected by the FilmArray RP2.1 may not be the definite cause of disease. Additional testing (lab, imaging, etc.) may be necessary when evaluating a patient with possible respiratory tract infection. The FilmArray RP2.1 assay has FDA clearance for testing of MANNEQUIN MOLD MAKER swabs. The performance characteristics of this assay have been determined by [facility]. Current interpretive data was last revised on 2020. Nasopharyngeal 02/03/2025 1: 40 PM CLASSROOM MONITOR 02/03/2025 1:43 PM CLASSROOM MONITOR Narrative [facility] - 02/03/2025 3:29 PM CLASSROOM MONITOR Is the Patient experiencing symptoms consistent with COVID?->Yes Surveillance testing for transplant patient?->No us Allan Acosta MD LAB MICROBIOLOGY - GENERA L ORDERABLES Final Result [facility] [address] Department [place] [address] CH * CT Abdomen Pelvis W Contrast (02/03/2025 12:53 PM CLASSROOM MONITOR) Anatomical Region Laterality Modality Body N/A Computed Tomogra phy 02/03/2025 1:02 PM CLASSROOM MONITOR Impressions 02/03/2025 1:02 PM CLASSROOM MONITOR No acute change. NO ACUTE INTRA-ABDOMINAL FINDINGS Electronically signed by: Krunal Del Valle M.D. Narrative 02/03/2025 1:02 PM CLASSROOM MONITOR EXAMINATION: CT ABDOMEN PELVIS W CONTRAST DATE: 02/03/2025 12:40 PM CLINICAL HISTORY: Abdominal pain TECHNIQUE: Axial CT imaging of the abdomen and pelvis performed with 69mL of Optiray 350 intravenous contrast. 2-D Reformatted images are obtained. COMPARISON: None FINDINGS: LOWER THORAX: The lung bases are clear. LIVER: Normal in appearance as visualized. BILIARY: Normal appearance of the gallbladder with no biliary ductal dilatation. as visualized. SPLEEN: Normal in appearance as visualized. PANCREAS: Normal in appearance ADRENALS: Normal in appearance KIDNEYS: Normal renal outlines. No sign of hydronephrosis. Occasional small cyst(s). GI TRACT: There is nonspecific gastric antral mucosal and/or wall thickening. The small bowel is normal in caliber with minimal fluid retention. The colon especially in the sigmoid region demonstrate extensive diverticulosis.. No free intraperitoneal air is present. APPENDIX: Unremarkable except for a small appendicolith. ABDOMINAL WALL: Unremarkable RETROPERITONEUM/LYMPH/MESENTERIC NODES: No retroperitoneal or mesenteric lymphadenopathy identified. VESSELS: The great vessels of the abdomen are unremarkable. PELVIC ORGANS: Uterus and adnexa are unremarkable... There is a decompressed under distended urinary bladder, unable to evaluate the significance of the wall thickening. BONES: There is a marked levoscoliosis in the upper lumbar region with generalized prominent degenerative disc changes throughout.. No suspicious osteolytic or osteoblastic lesions. . Procedure Note Krunal Del Valle MD - 02/03/2025 EXAMINATION: CT ABDOMEN PELVIS W CONTRAST DATE: 02/03/2025 12:40 PM CLINICAL HISTORY: Abdominal pain TECHNIQUE: Axial CT imaging of the abdomen and pelvis performed with 69mL of Optiray 350 intravenous contrast. 2-D Reformatted images are obtained. COMPARISON: None FINDINGS: LOWER THORAX: The lung bases are clear. LIVER: Normal in appearance as visualized. BILIARY: Normal appearance of the gallbladder with no biliary ductal dilatation. as visualized. SPLEEN: Normal in appearance as visualized. PANCREAS: Normal in appearance ADRENALS: Normal in appearance KIDNEYS: Normal renal outlines. No sign of hydronephrosis. Occasional small cyst(s). GI TRACT: There is nonspecific gastric antral mucosal and/or wall thickening. The small bowel is normal in caliber with minimal fluid retention. The colon especially in the sigmoid region demonstrate extensive diverticulosis.. No free intraperitoneal air is present. APPENDIX: Unremarkable except for a small appendicolith. ABDOMINAL WALL: Unremarkable RETROPERITONEUM/LYMPH/MESENTERIC NODES: No retroperitoneal or mesenteric lymphadenopathy identified. VESSELS: The great vessels of the abdomen are unremarkable. PELVIC ORGANS: Uterus and adnexa are unremarkable... There is a decompressed under distended urinary bladder, unable to evaluate the significance of the wall thickening. BONES: There is a marked levoscoliosis in the upper lumbar region with generalized prominent degenerative disc changes throughout.. No suspicious osteolytic or osteoblastic lesions. . IMPRESSION: No acute change. NO ACUTE INTRA-ABDOMINAL FINDINGS Electronically signed by: Krunal Del Valle M.D. us Allan Acosta MD IMG CT PROCEDURES Final R esult * CT Head WO Contrast (02/03/2025 12:52 PM CLASSROOM MONITOR) Anatomical Region Laterality Modality Head and Neck N/A Computed Tomogra phy 02/03/2025 1:04 PM CLASSROOM MONITOR Impressions 02/03/2025 1:04 PM CLASSROOM MONITOR CHRONIC ISCHEMIC WHITE MATTER CHANGES CORTICAL ATROPHY CANNOT EXCLUDE THE POSSIBILITY OF NORMAL PRESSURE HYDROCEPHALUS. Electronically signed by: Krunal Del Valle M.D. Narrative 02/03/2025 1:04 PM CLASSROOM MONITOR EXAMINATION: CT HEAD WO CONTRAST HISTORY: Dizziness ORDER DATE: 02/03/2025 12:50 PM TECHNIQUE: CT imaging of the head is performed without the use of intravascular contrast with transaxial imaging from the skull base to the vertex with 2-D reformats. COMPARISON:NONE FINDINGS: There is decreased attenuation within each centrum semiovale consistent with chronic microvascular ischemic changes. There is prominence of the ventricles secondary to central and generalized cortical atrophy. There is no mass effect, midline shift or intraventricular or parenchymal hemorrhage. There are no extra-axial fluid collections. The paranasal sinuses are predominantly clear with minimal scattered mucosal thickening and without air- fluid levels. The mastoids are clear. There is no sign of skull fracture. There are atherosclerotic cerebrovascular calcifications. Procedure Note Krunal Del Valle MD - 02/03/2025 EXAMINATION: CT HEAD WO CONTRAST HISTORY: Dizziness ORDER DATE: 02/03/2025 12:50 PM TECHNIQUE: CT imaging of the head is performed without the use of intravascular contrast with transaxial imaging from the skull base to the vertex with 2-D reformats. COMPARISON:NONE FINDINGS: There is decreased attenuation within each centrum semiovale consistent with chronic microvascular ischemic changes. There is prominence of the ventricles secondary to central and generalized cortical atrophy. There is no mass effect, midline shift or intraventricular or parenchymal hemorrhage. There are no extra-axial fluid collections. The paranasal sinuses are predominantly clear with minimal scattered mucosal thickening and without air- fluid levels. The mastoids are clear. There is no sign of skull fracture. There are atherosclerotic cerebrovascular calcifications. IMPRESSION: CHRONIC ISCHEMIC WHITE MATTER CHANGES CORTICAL ATROPHY CANNOT EXCLUDE THE POSSIBILITY OF NORMAL PRESSURE HYDROCEPHALUS. Electronically signed by: Krunal Del Valle M.D. Allan Acosta MD IMG CT PROCEDURES Final R esult * XR Chest 1 View (02/03/2025 12:15 PM CLASSROOM MONITOR) Anatomical Region Laterality Modality Body, Chest N/A Computed Radiogr aphy 02/03/2025 1:1 1 PM CLASSROOM MONITOR Impressions 02/03/2025 1:11 PM CLASSROOM MONITOR No active disease. Electronically signed by: Evan Tee M.D. Narrative 02/03/2025 1:11 PM CLASSROOM MONITOR EXAMINATION: XR CHEST 1 VIEW DATE: 02/03/2025 12:05 HISTORY: c/f pna FINDINGS: Thoracolumbar scoliosis is present. The lungs are clear. Heart size and pulmonary vascularity are normal. Procedure Note Evan Tee MD - 02/03/2025 EXAMINATION: XR CHEST 1 VIEW DATE: 02/03/2025 12:05 HISTORY: c/f pna FINDINGS: Thoracolumbar scoliosis is present. The lungs are clear. Heart size and pulmonary vascularity are normal. IMPRESSION: No active disease. Electronically signed by: Evan Tee M.D. Allan Acosta MD IMG XR PROCEDURES Final R esult * (ABNORMAL) Troponin T high-sensitivity series (baseline, 2hr, 4hr, 6hr) (02/03/2025 11:44 AM CLASSROOM MONITOR) Trop T hs 18(H) <=14 ng/L Comment: Interpretive Data For further hscTnT resources including the diagnostic algorithm and an aid in interpretation, copy and paste this link: https://nrl.testcatalog.org/show/hsTrop Current Interpretive Data last revised 2020. Blood 02/03/2025 11:4 4 AM CLASSROOM MONITOR 02/03/2025 11:55 AM CLASSROOM MONITOR Allan Acosta MD LAB BLOOD ORDERABLES Mary bonilla Result [facility] [id number] Department [place] [address] * (ABNORMAL) eGFR (02/03/2025 11:44 AM CLASSROOM MONITOR) eGFR 31(L) >=60 mL/min/1. 73 m2 Comment: Interpretive Data Reference Interval Normal >/= 90 mL/min/1.73m2 Mildly decreased* 60 - 89 mL/min/1.73m2 Mildly to moderately decreased 45 - 59 mL/min/1.73m2 Moderately to severely decreased 30 - 44 mL/min/1.73m2 Severely decreased 15 - 29 mL/min/1.73m2 Kidney Failure < 15 mL/min/1.73m2 *Relative to young adult level Estimated glomerular filtration rate is determined by the 2020 CKD-EPI equation recommended by the National Kidney Foundation (A Unifying Approach to GFR Estimation: Recommendations of the NKF-ASK Task Force on Reassessing the Inclusion of Race in Diagnosing Kidney Disease, JASN 2020). The CKD-EPI equation should not be used for patients with unstable renal function and has not been validated in children and those over 70. Current interpretive data was last reviewed 2021. Blood 02/03/2025 11:4 4 AM CLASSROOM MONITOR 02/03/2025 12:05 PM CLASSROOM MONITOR Allan Acosta MD LAB BLOOD ORDERABLES Mary l Result [facility] [address] Department [place] [address] * Differential, auto (02/03/2025 11:44 AM CLASSROOM MONITOR) Neutrophil abs 4.52 1.50 - 6.50 K/cumm Imm gran abs 0.07 0.00 - 0.10 K/cumm [facility] Lymphocyte abs 1.90 0.80 - 3.30 K/cumm [facility] Monocyte abs 0.67 0.20 - 0.80 K/cumm [facility] Eosinophil abs 0.07 0.00 - 0.50 K/cumm [facility] Basophil abs 0.06 0.00 - 0.10 K/cumm [facility] Neutrophil pct 61.9 % [facility] Comment: Interpretive Data Percent cell count reference ranges are not reported, since discordance with absolute values may lead to misinterpretation of CBC data. Current Interpretive Data was last revised on 2017. Imm gran pct 1.0 % [facility] Comment: Interpretive Data Percent cell count reference ranges are not reported, since discordance with absolute values may lead to misinterpretation of CBC data. Current Interpretive Data was last revised on 2017. Lymphocyte pct 26.1 % [facility] Comment: Interpretive Data Percent cell count reference ranges are not reported, since discordance with absolute values may lead to misinterpretation of CBC data. Current Interpretive Data was last revised on 2017. Monocyte pct 9.2 % [facility] Comment: Interpretive Data Percent cell count reference ranges are not reported, since discordance with absolute values may lead to misinterpretation of CBC data. Current Interpretive Data was last revised on 2017. Eosinophil pct 1.0 % [facility] Comment: Interpretive Data Percent cell count reference ranges are not reported, since discordance with absolute values may lead to misinterpretation of CBC data. Current Interpretive Data was last revised on 2017. Basophil pct 0.8 % [facility] Comment: Interpretive Data Percent cell count reference ranges are not reported, since discordance with absolute values may lead to misinterpretation of CBC data. Current Interpretive Data was last revised on 2017. Blood 02/03/2025 11:4 4 AM CLASSROOM MONITOR 02/03/2025 11:54 AM CLASSROOM MONITOR us Allan Acosta MD LAB BLOOD ORDERABLES Mary bonilla Result [facility] [address] Department [place] [address] * (ABNORMAL) CBC with auto differential (02/03/2025 11:44 AM CLASSROOM MONITOR) WBC 7.29 3.80 - 9.90 K/cumm Hgb 11.0(L) 11.9 - 15.5 g/dL [facility] Hct 33.2(L) 35.6 - 45.5 % [facility] Plt 383 150 - 400 K/cumm [facility] MPV 9.1 9.1 - 12.3 fL [facility] RBC 3.22(L) 3.90 - 5.20 M/cumm [facility] MCV 103.1(H) 81.3 - 96.4 fL [facility] MCH 34.2(H) 27.1 - 33.3 pg [facility] MCHC 33.1 32.3 - 35.7 g/dL [facility] RDW CV 16.9(H) 11.1 - 14.9 % [facility] RDW SD 62.0(H) 35.7 - 48.1 fL [facility] NRBC abs 0.00 0.00 - 0.01 K/cumm [facility] Blood Venous blood specimen / Unknown 02/03/2025 11:44 AM CLASSROOM MONITOR 02/03/2025 11:54 AM CLASSROOM MONITOR Allan Acosta MD LAB BLOOD ORDERABLES Mary l Result Performing Organization Address City/[facility]/ZIP Co de Phone Number [facility] [address] [place] [address] * Lipase (02/03/2025 11:44 AM CLASSROOM MONITOR) [facility] Lipase 21 10 - 99 Units/L Blood Venous blood specimen / Unknown 02/03/2025 11:44 AM CLASSROOM MONITOR 02/03/2025 12:05 PM CLASSROOM MONITOR Allan Acosta MD LAB BLOOD ORDERABLES Mary l Result Performing Organization Address [facility], Inc/[facility] de Phone Number [facility] [address] [facility] [place] [address] * (ABNORMAL) Comprehensive metabolic panel (02/03/2025 11:44 AM CLASSROOM MONITOR) Pathologist [facility] Sodium 138 135 - 145 mmol/L Potassium, pl 5.0(H) 3.3 - 4.9 mmol/L [facility] Chloride 99 97 - 110 mmol/L [facility] CO2 26 22 - 32 mmol/L [facility] Anion gap 13 2 - 15 mmol/L [facility] CH BUN 22 6 - 25 mg/dL [facility] Creatinine 1.78(H) 0.60 - 1.10 mg/dL CERNER Glucose 97 70 - 199 mg/dL [facility] Comment: Interpretive Data Fasting glucose >/= 126 mg/dl is diagnostic for diabetes. Fasting is defined as no caloric intake for at least 8 hours. Fasting glucose between 100 mg/dl to 125 mg/dl is diagnostic of prediabetes. In a patient with classic symptoms of hyperglycemia or hyperglycemic crisis, a random glucose >/= 200 mg/dl is diagnostic for diabetes. In the absence of unequivocal hyperglycemia, results should be confirmed by repeat testing. The classification and Diagnosis of Diabetes Diabetes Care 2021; 46: S19-S40. Current interpretive data was last revised 2022. Calcium 9.2 8.5 - 10.3 mg/dL [facility] Bilirubin, total 0.2 0.1 - 1.2 mg/dL [facility] Protein, pl 6.9 6.5 - 8.5 g/dL [facility] Albumin 3.8 3.5 - 5.0 g/dL [facility] Alk phos 67 40 - 130 Units/L [facility] ALT 14 7 - 45 Units/L [facility] AST 21 10 - 45 Units/L [facility] Blood 02/03/2025 11:4 4 AM CLASSROOM MONITOR 02/03/2025 11:55 AM CLASSROOM MONITOR Allan Acosta MD LAB BLOOD ORDERABLES Mary l Result Performing Organization Address [facility] Inc/[facility] de Phone Number [facility] [address] [facility] Department [place] [address] * ECG 12 lead (02/03/2025 11:36 AM CLASSROOM MONITOR) 02/03/2025 11:3 6 AM CLASSROOM MONITOR Narrative [facility] - 02/03/2025 3:03 PM CLASSROOM MONITOR Vent Rate: 81 bpm RR Interval: 738 msec FL Interval: 184 msec QRS Duration: 98 msec QT Interval: 370 msec QTC Interval: 407 msec P-R-T [place]: 67 - 59 - 64 degrees IMPRESSION: SINUS RHYTHM POSSIBLE INFERIOR MYOCARDIAL INFARCTION , OF INDETERMINATE AGE Electronically Signed By: Ronald Tolbert MD, [facility] Allan Acosta MD ECG ORDERABLES Final Res ult Performing Organization Address [facility] Inc/[facility] Co de Phone Number [facility] [employer] [facility] * POCT glucose (02/02/2025 7:38 PM CLASSROOM MONITOR) Glucose Blood, POC 123 Normal Fasting 70 - 100, Random <200 mg/dL Blood 02/02/2025 7:38 PM CLASSROOM MONITOR Azalia Pena [employer]NE[employer] POINT OF CARE TEST ORDERABLES Final Result * (ABNORMAL) POCT urinalysis dipstick (02/02/2025 6:55 PM CLASSROOM MONITOR) Color, Urine, POC Yellow Clarity, ur, POC Cloudy(A) Clear Glucose, ur, POC Negative Negative Bilirubin, ur, POC Negative Negative Ketones, ur, POC Negative Negative Specific [place], POC 1.030 1.003 - 1.030 Blood, ur, POC Trace(A) Negative pH, ur, POC 5.5 5.0 - 8.0 Protein, ur, POC 30.(A) Negative Urobilinogen, urine, POC 0.2 0.2 - 1.0 mg/dL Nitrite, ur, POC Negative Negative Leukocytes, ur, POC Negative Negative Lot Number [id number] Urine 02/02/2025 6:55 PM CLASSROOM MONITOR Azalia Pena NP POINT OF CARE TEST ORDERABLES Final Result * (ABNORMAL) eGFR (01/19/2025 9:46 AM CDT) eGFR 40(L) >=60 mL/min/1. 73 m2 Comment: Interpretive Data Reference Interval Normal >/= 90 mL/min/1.73m2 Mildly decreased* 60 - 89 mL/min/1.73m2 Mildly to moderately decreased 45 - 59 mL/min/1.73m2 Moderately to severely decreased 30 - 44 mL/min/1.73m2 Severely decreased 15 - 29 mL/min/1.73m2 Kidney Failure < 15 mL/min/1.73m2 *Relative to young adult level Estimated glomerular filtration rate is determined by the 2020 CKD-EPI equation recommended by the National Kidney Foundation (A Unifying Approach to GFR Estimation: Recommendations of the NKF-ASK Task Force on Reassessing the Inclusion of Race in Diagnosing Kidney Disease, JASN 2020). The CKD-EPI equation should not be used for patients with unstable renal function and has not been validated in children and those over 70. Current interpretive data was last reviewed 2021. Blood 01/19/2025 9:46 AM CDT 01/19/2025 9:55 AM CDT Tirso Troncoso MD LAB BLOOD ORDERABLES Final Resul t Performing Organization Address City/[facility] Co de Phone Number [facility] Department [place] [address] * Lactate dehydrogenase (LD) (01/19/2025 9:46 AM CDT) Pathologist [facility] Lactate dehydrogenase (LDH) 164 100 - 250 Units/L Blood 01/19/2025 9:46 AM CDT 01/19/2025 9:55 AM CDT Tirso Troncoso MD LAB BLOOD ORDERABLES Final Resul t Performing Organization Address [facility] Inc/[facility] de Phone Number [facility] Department [place] [address] * (ABNORMAL) Comprehensive metabolic panel (01/19/2025 9:46 AM CDT) Pathologist [facility] Sodium 139 135 - 145 mmol/L Potassium, pl 4.8 3.3 - 4.9 mmol/L [facility] Chloride 104 97 - 110 mmol/L [facility] CO2 27 22 - 32 mmol/L [facility] Anion gap 8 2 - 15 mmol/L [facility] BUN 15 6 - 25 mg/dL [facility] Creatinine 1.45(H) 0.60 - 1.10 mg/dL [facility] Glucose 86 70 - 199 mg/dL [facility] Comment: Interpretive Data Fasting glucose >/= 126 mg/dl is diagnostic for diabetes. Fasting is defined as no caloric intake for at least 8 hours. Fasting glucose between 100 mg/dl to 125 mg/dl is diagnostic of prediabetes. In a patient with classic symptoms of hyperglycemia or hyperglycemic crisis, a random glucose >/= 200 mg/dl is diagnostic for diabetes. In the absence of unequivocal hyperglycemia, results should be confirmed by repeat testing. The classification and Diagnosis of Diabetes Diabetes Care 2021; 46: S19-S40. Current interpretive data was last revised 2022. Calcium 9.3 8.5 - 10.3 mg/dL [facility] Bilirubin, total 0.5 0.1 - 1.2 mg/dL [facility]ER [facility] Protein, pl 7.0 6.5 - 8.5 g/dL [facility]ERNER [facility] Albumin 4.3 3.5 - 5.0 g/dL [facility]ER [facility] Alk phos 63 40 - 130 Units/L [facility] ALT 9 7 - 45 Units/L [facility] AST 22 10 - 45 Units/L [facility] Blood 01/19/2025 9:46 AM CDT 01/19/2025 9:55 AM CDT us Tirso Troncoso MD LAB BLOOD ORDERABLES Final Resul t [facility] Department [place] [address] * (ABNORMAL) Differential, auto (01/19/2025 9:44 AM CDT) Neutrophil abs 7.14(H) 1.50 - 6.50 K/cumm Comment:Testing performed by : [facility], [address] [place] [phone] Lymphocyte abs 0.91 0.80 - 3.30 K/cumm CERNER BJ Comment:Testing performed by : [facility], [address] [place] [phone] Monocyte abs 0.39 0.20 - 0.80 K/cumm CERNER BJ Comment:Testing performed by : [facility], [address] [place] [phone] Eosinophil abs 0.03 0.00 - 0.50 K/cumm CERNER BJ Comment:Testing performed by : [facility], [address] [place] [phone] Basophil abs 0.05 0.00 - 0.10 K/cumm [facility] Comment:Testing performed by : [facility], [address] [place] [phone] Neutrophil pct 83.8 % [facility] Comment: Interpretive Data Percent cell count reference ranges are not reported, since discordance with absolute values may lead to misinterpretation of CBC data. Current Interpretive Data was last revised on 2017. Testing performed by: [facility], [address] [place] [phone] Lymphocyte pct 10.7 % [facility] Comment: Interpretive Data Percent cell count reference ranges are not reported, since discordance with absolute values may lead to misinterpretation of CBC data. Current Interpretive Data was last revised on 2017. Testing performed by: [facility], [address] [place] [address] Monocyte pct 4.6 % [facility] Comment: Interpretive Data Percent cell count reference ranges are not reported, since discordance with absolute values may lead to misinterpretation of CBC data. Current Interpretive Data was last revised on 2017. Testing performed by: [facility], [address] [place], [place] [id number] Eosinophil pct 0.4 % [facility] Comment: Interpretive Data Percent cell count reference ranges are not reported, since discordance with absolute values may lead to misinterpretation of CBC data. Current Interpretive Data was last revised on 2017. Testing performed by: [facility], [address] [place] [phone] Basophil pct 0.6 % [facility] Comment: Interpretive Data Percent cell count reference ranges are not reported, since discordance with absolute values may lead to misinterpretation of CBC data. Current Interpretive Data was last revised on 2017. Testing performed by: [facility], [address] [place] [phone] Blood 01/19/2025 9:44 AM CDT 01/19/2025 9:53 AM CDT us Tirso Troncoso MD LAB BLOOD ORDERABLES Final Resul t [facility] Department [place] [address] * (ABNORMAL) CBC with auto differential (01/19/2025 9:44 AM CDT) WBC 8.52 3.80 - 9.90 K/cumm Comment:Testing performed by : [facility], [address] [place] [address] Hgb 11.6(L) 11.9 - 15.5 g/dL BORA COLLADO Comment:Testing performed by : [facility], [address] [place] [address] Hct 35.3(L) 35.6 - 45.5 % BORA COLLADO Comment:Testing performed by : [facility], [address] [place] [address] Plt 307 150 - 400 K/cumm BORA COLLADO Comment:Testing performed by : [facility], [address] [place] [address] MPV 6.7(L) 6.8 - 10.4 fL BORA COLLADO Comment:Testing performed by : [facility], [address] [place] [address] RBC 3.33(L) 3.90 - 5.20 M/cumm BORA COLLADO Comment:Testing performed by : [facility], [address] [place] [address] MCV 105.9(H) 81.3 - 96.4 fL CERGIOVANNA BJ Comment:Testing performed by : [facility], [address] [place] [address] MCH 34.7(H) 27.1 - 33.3 pg CERGIOVANNA BJ Comment:Testing performed by : [facility], [address] [place] [address] MCHC 32.8 32.3 - 35.7 g/dL CERGIOVANNA COLLADO Comment:Testing performed by : [facility], [address] [place] [phone] RDW CV 18.4(H) 11.1 - 14.9 % [facility] Comment:Testing performed by : [facility], [address] [place] [phone] NRBC abs 0.00 0.00 - 0.01 K/cumm [facility] Comment:Testing performed by : [facility], [address] [place] [phone] Blood 01/19/2025 9:44 AM CDT 01/19/2025 9:53 AM CDT us Tirso Troncoso MD LAB BLOOD ORDERABLES Final Resul t [facility] Department [place] [address] * (ABNORMAL) eGFR (01/17/2025 11:20 AM CDT) eGFR 35(L) >=60 mL/min/1. 73 m2 Comment: Interpretive Data Reference Interval Normal >/= 90 mL/min/1.73m2 Mildly decreased* 60 - 89 mL/min/1.73m2 Mildly to moderately decreased 45 - 59 mL/min/1.73m2 Moderately to severely decreased 30 - 44 mL/min/1.73m2 Severely decreased 15 - 29 mL/min/1.73m2 Kidney Failure < 15 mL/min/1.73m2 *Relative to young adult level Estimated glomerular filtration rate is determined by the 2020 CKD-EPI equation recommended by the National Kidney Foundation (A Unifying Approach to GFR Estimation: Recommendations of the NKF-ASK Task Force on Reassessing the Inclusion of Race in Diagnosing Kidney Disease, JASN 2020). The CKD-EPI equation should not be used for patients with unstable renal function and has not been validated in children and those over 70. Current interpretive data was last reviewed 2021. Testing performed by: [facility], [facility], [place], [address] Blood 01/17/2025 11:2 0 AM CDT 01/17/2025 11:37 AM CDT Mamadou Chavez MD LAB BLOOD ORDERABLES Mary bonilla Result [facility] Department [place] [address] * (ABNORMAL) Differential, auto (01/17/2025 11:20 AM CDT) Neutrophil abs 7.79(H) 1.50 - 6.50 K/cumm [facility] ([place]) Comment:Testing performed by : [facility] [address], Medical Office [facility] [address] [facility] [address], [place] [address] Imm gran abs 0.02 0.00 - 0.10 K/cumm [facility]) Comment:Testing performed by : [facility] [address], Medical Office [facility] [address], [place] [address] Lymphocyte abs 1.47 0.80 - 3.30 K/cumm [facility] ([facility]) Comment:Testing performed by : [facility] [address], Medical Office [facility] [address], [place] [address] Monocyte abs 0.54 0.20 - 0.80 K/cumm [facility] ([facility]) Comment:Testing performed by : [facility] [address], Medical Office [facility] [address], [place] [address] Eosinophil abs 0.06 0.00 - 0.50 K/cumm [facility] ([facility]) Comment:Testing performed by : [facility] [address], Medical Office [facility] [address], [place] [address] Basophil abs 0.05 0.00 - 0.10 K/cumm [facility] ([facility]) Comment:Testing performed by : [facility] [address], Medical Office [facility] [address], [place] [address] Neutrophil pct 78.5 % [facility] R [facility] ([facility]) Comment: Interpretive Data Percent cell count reference ranges are not reported, since discordance with absolute values may lead to misinterpretation of CBC data. Current Interpretive Data was last revised on 2022. Testing performed by: [facility] [address], Medical Office [address], [place] [address] Imm gran pct 0.2 % [facility] ([place]) Comment: Interpretive Data Percent cell count reference ranges are not reported, since discordance with absolute values may lead to misinterpretation of CBC data. Current Interpretive Data was last revised on 2022. Testing performed by: [facility] [address], Medical Office [facility] [address], [place] [address] Lymphocyte pct 14.8 % [facility]NE R [facility] ([place]) Comment: Interpretive Data Percent cell count reference ranges are not reported, since discordance with absolute values may lead to misinterpretation of CBC data. Current Interpretive Data was last revised on 2022. Testing performed by: [facility] [address], Medical Office [facility] [address], [place] [address] Monocyte pct 5.4 % [facility] ([place]) Comment: Interpretive Data Percent cell count reference ranges are not reported, since discordance with absolute values may lead to misinterpretation of CBC data. Current Interpretive Data was last revised on 2022. Testing performed by: [facility] [address], Medical Office [facility] [address], [place] [address] Eosinophil pct 0.6 % [facility] R [facility] ([place]) Comment: Interpretive Data Percent cell count reference ranges are not reported, since discordance with absolute values may lead to misinterpretation of CBC data. Current Interpretive Data was last revised on 2022. Testing performed by: [facility] [address], Medical Office [address], [place] [address] Basophil pct 0.5 % [facility] ([place]) Comment: Interpretive Data Percent cell count reference ranges are not reported, since discordance with absolute values may lead to misinterpretation of CBC data. Current Interpretive Data was last revised on 2022. Testing performed by: [facility] [address], Medical Office [facility] [address], [place] [address] Blood 01/17/2025 11:2 0 AM CDT 01/17/2025 11:22 AM CDT us Mamadou Chavez MD LAB BLOOD ORDERABLES Mary bonilla Result [facility]ON ([place]) 1 [facility] [place] [address] * (ABNORMAL) CBC with auto differential (01/17/2025 11:20 AM CDT) WBC 9.93(H) 3.80 - 9.90 K/cumm [facility] ([place]) Comment:Testing performed by : [facility] [address], Medical Office [facility] [address], [place] [address] Hgb 11.7(L) 11.9 - 15.5 g/dL [facility] ([place]) Comment:Testing performed by : [facility] [address], Medical Office [facility] [address], [place] [address] Hct 35.4(L) 35.6 - 45.5 % [facility] ([place]) Comment:Testing performed by : [facility] [address], Medical Office [facility] [address], [place] [address] Plt 304 150 - 400 K/cumm [facility] ([place]) Comment:Testing performed by : [facility] [address], Medical Office [facility] [address], [place] [address] MPV 8.9(L) 9.1 - 12.3 fL [facility] ([place]) Comment:Testing performed by : [facility] [address], Medical Office [facility] [address], [place] [address] RBC 3.34(L) 3.90 - 5.20 M/cumm [facility] ([place]) Comment:Testing performed by : [facility] [address], Medical Office [facility] [address], [place] [address] MCV 106.0(H) 81.3 - 96.4 fL [facility] ([place]) Comment:Testing performed by : [facility] [address], Medical Office [facility] [address], [place] [address] MCH 35.0(H) 27.1 - 33.3 pg [facility] ([place]) Comment:Testing performed by : [facility] [address], Medical Office Bld[address], [place] [address] MCHC 33.1 32.3 - 35.7 g/dL [facility] ([place]) Comment:Testing performed by : [facility] [address], Medical Office [address], [place] [address] RDW CV 18.1(H) 11.1 - 14.9 % [facility] ([place]) Comment:Testing performed by : [facility] [address], Medical Office [address], [place] [address] RDW SD 68.8(H) 35.7 - 48.1 fL [facility] ([place]) Comment:Testing performed by : [facility] [address], Medical Office [address], [place] [address] Blood 01/17/2025 11:2 0 AM CDT 01/17/2025 11:22 AM CDT Narrative [facility] ([place]) - 01/17/2025 11:25 AM CDT 01/17, 02/07, 02/28, 03/21 Mamadou Chavez MD LAB BLOOD ORDERABLES Mary l Result [facility] ([place]) 1 [facility] Department [place] [address] * (ABNORMAL) Comprehensive metabolic panel (01/17/2025 11:20 AM CDT) Sodium 138 135 - 145 mmol/L Comment:Testing performed by : [facility], [facility], [place], [address] Potassium, pl 5.1(H) 3.3 - 4.9 mmol/L [facility] ([place]) Comment:Testing performed by : [facility], [facility], [place], [address] Chloride 103 97 - 110 mmol/L [facility] ([place]) Comment:Testing performed by : [facility], [facility], [place], [address] CO2 28 22 - 32 mmol/L [facility] ([place]) Comment:Testing performed by : [facility], [facility], [place], [address] Anion gap 7 2 - 15 mmol/L [facility] ([place]) Comment:Testing performed by : [facility], [facility], [place], [address] BUN 22 6 - 25 mg/dL [facility] ([place]) Comment:Testing performed by : [facility], [facility], [place], [address] Creatinine 1.59(H) 0.60 - 1.10 mg/dL [facility] ([place]) Comment:Testing performed by : [facility], [facility], [place], [address] Glucose 101 70 - 199 mg/dL [facility]) Comment: Interpretive Data Fasting glucose >/= 126 mg/dl is diagnostic for diabetes. Fasting is defined as no caloric intake for at least 8 hours. Fasting glucose between 100 mg/dl to 125 mg/dl is diagnostic of prediabetes. In a patient with classic symptoms of hyperglycemia or hyperglycemic crisis, a random glucose >/= 200 mg/dl is diagnostic for diabetes. In the absence of unequivocal hyperglycemia, results should be confirmed by repeat testing. The classification and Diagnosis of Diabetes Diabetes Care 2021; 46: S19-S40. Current interpretive data was last revised 2022. Testing performed by: [facility], [place], [address] Calcium 9.5 8.5 - 10.3 mg/dL [facility]) Comment:Testing performed by : [facility], [place], [address] Bilirubin, total 0.5 0.1 - 1.2 mg/dL [facility] ([place]) Comment:Testing performed by : [facility], [place], [address] Protein, pl 7.1 6.5 - 8.5 g/dL [facility] ([place]) Comment:Testing performed by : [facility], [facility], [place], [address] Albumin 4.6 3.5 - 5.0 g/dL [facility] ([place]) Comment:Testing performed by : [facility], [place], [address] Alk phos 65 40 - 130 Units/L [facility] ([facility]) Comment:Testing performed by : [facility], [facility], [place], [address] ALT 10 7 - 45 Units/L [facility] ([facility]) Comment:Testing performed by : [facility], [facility], [place], [address] AST 24 10 - 45 Units/L [facility] ([facility]) Comment:Testing performed by : [facility], [facility], [place], [address] Blood 01/17/2025 11:2 0 AM CDT 01/17/2025 11:37 AM CDT Narrative [facility] ([facility]) - 01/17/2025 12:07 PM CDT 01/17, 02/07, 02/28, 03/21 us Mamadou Chavez MD LAB BLOOD ORDERABLES Mary l Result [facility] 1 [facility] Department [place] [address] * XR Knee Right 4 or More Views (01/04/2025 9:51 AM CDT) Anatomical Region Laterality Modality Lower Extremities, Knee Right Digital Radiography Narrative 01/04/2025 11:51 AM CDT Severe advanced right knee varus osteoarthritis with anau-oh-hkkw contact medially, osteophyte formation, subluxation. us Yaya Irvin MD IMG XR PROCEDURES Final Result * (ABNORMAL) eGFR (12/27/2024 10:50 AM CDT) eGFR 34(L) >=60 mL/min/1. 73 m2 Comment: Interpretive Data Reference Interval Normal >/= 90 mL/min/1.73m2 Mildly decreased* 60 - 89 mL/min/1.73m2 Mildly to moderately decreased 45 - 59 mL/min/1.73m2 Moderately to severely decreased 30 - 44 mL/min/1.73m2 Severely decreased 15 - 29 mL/min/1.73m2 Kidney Failure < 15 mL/min/1.73m2 *Relative to young adult level Estimated glomerular filtration rate is determined by the 2020 CKD-EPI equation recommended by the [employer] (A Unifying Approach to GFR Estimation: Recommendations of the NKF-ASK Task Force on Reassessing the Inclusion of Race in Diagnosing Kidney Disease, JASN 2020). The CKD-EPI equation should not be used for patients with unstable renal function and has not been validated in children and those over 70. Current interpretive data was last reviewed 2021. Testing performed by: [place], [address] Blood 12/27/2024 10:5 0 AM CDT 12/27/2024 11:52 AM CDT us Mamadou Chavez MD LAB BLOOD ORDERABLES Mary bonilla Result [facility] 1 [facility] [place] [address] * Differential, auto (12/27/2024 10:50 AM CDT) Neutrophil abs 4.70 1.50 - 6.50 K/cumm Comment:Testing performed by : [place], [address] Imm gran abs 0.02 0.00 - 0.10 K/cumm [facility] ([facility]) Comment:Testing performed by : [place], [address] Lymphocyte abs 1.59 0.80 - 3.30 K/cumm [facility] ([facility]) Comment:Testing performed by : [place], [address] Monocyte abs 0.52 0.20 - 0.80 K/cumm [facility] ([facility]) Comment:Testing performed by : [place], [address] Eosinophil abs 0.11 0.00 - 0.50 K/cumm [facility]) Comment:Testing performed by : [facility], [place], [address] Basophil abs 0.05 0.00 - 0.10 K/cumm [facility]) Comment:Testing performed by : [facility], [place], [address] Neutrophil pct 67.3 % [facility] ([place]) Comment: Interpretive Data Percent cell count reference ranges are not reported, since discordance with absolute values may lead to misinterpretation of CBC data. Current Interpretive Data was last revised on 2017. Testing performed by: [facility], [place], [address] Imm gran pct 0.3 % [facility] ([place]) Comment: Interpretive Data Percent cell count reference ranges are not reported, since discordance with absolute values may lead to misinterpretation of CBC data. Current Interpretive Data was last revised on 2017. Testing performed by: [facility], [place], [address] Lymphocyte pct 22.7 % [facility] ([place]) Comment: Interpretive Data Percent cell count reference ranges are not reported, since discordance with absolute values may lead to misinterpretation of CBC data. Current Interpretive Data was last revised on 2017. Testing performed by: [facility], [place], [address] Monocyte pct 7.4 % [facility] ([place]) Comment: Interpretive Data Percent cell count reference ranges are not reported, since discordance with absolute values may lead to misinterpretation of CBC data. Current Interpretive Data was last revised on 2017. Testing performed by: [facility], [place], [address] Eosinophil pct 1.6 % [facility] ([place]) Comment: Interpretive Data Percent cell count reference ranges are not reported, since discordance with absolute values may lead to misinterpretation of CBC data. Current Interpretive Data was last revised on 2017. Testing performed by: [facility], [place], [address] Basophil pct 0.7 % [facility] ([place]) Comment: Interpretive Data Percent cell count reference ranges are not reported, since discordance with absolute values may lead to misinterpretation of CBC data. Current Interpretive Data was last revised on 2017. Testing performed by: [facility], [place], [address] Blood 12/27/2024 10:5 0 AM CDT 12/27/2024 11:12 AM CDT us Mamadou Chavez MD LAB BLOOD ORDERABLES Mary bonilla Result [facility] 1 [facility] [place] [address] * (ABNORMAL) CBC with auto differential (12/27/2024 10:50 AM CDT) WBC 6.99 3.80 - 9.90 K/cumm Comment:Testing performed by : [place], [address] Hgb 12.6 11.9 - 15.5 g/dL [facility] ([facility]) Comment:Testing performed by : [place], [address] Hct 37.6 35.6 - 45.5 % [facility]) Comment:Testing performed by : [place], [address] Plt 337 150 - 400 K/cumm [facility] ([facility]) Comment:Testing performed by : [place], [address] MPV 8.9(L) 9.1 - 12.3 fL [facility] ([facility]) Comment:Testing performed by : [place], [address] RBC 3.60(L) 3.90 - 5.20 M/cumm [facility] ([facility]) Comment:Testing performed by : [place], [address] MCV 104.4(H) 81.3 - 96.4 fL [facility]) Comment:Testing performed by : [place], [address] MCH 35.0(H) 27.1 - 33.3 pg [facility]) Comment:Testing performed by : [place], [address] MCHC 33.5 32.3 - 35.7 g/dL [facility]) Comment:Testing performed by : [place], [address] RDW CV 18.3(H) 11.1 - 14.9 % [facility] ([place]) Comment:Testing performed by : [facility], [facility], [place], [address] RDW SD 68.7(H) 35.7 - 48.1 fL [facility] ([place]) Comment:Testing performed by : [facility], [facility], [place], [address] NRBC abs 0.04(H) 0.00 - 0.01 K/cumm [facility] Comment:Testing performed by : [facility], [facility], [place], [address] Blood 12/27/2024 10:5 0 AM CDT 12/27/2024 11:12 AM CDT us Mamadou Chavez MD LAB BLOOD ORDERABLES Mary bonilla Result [facility] 1 [facility] [place] [address] * (ABNORMAL) Comprehensive metabolic panel (12/27/2024 10:50 AM CDT) Sodium 138 135 - 145 mmol/L [facility] ([place]) Potassium, pl 5.1(H) 3.3 - 4.9 mmol/L [facility] ([place]) Chloride 100 97 - 110 mmol/L [facility] ([place]) CO2 25 22 - 32 mmol/L [facility] ([place]) Anion gap 13 2 - 15 mmol/L [facility] ([place]) BUN 25 6 - 25 mg/dL [facility] ([place]) Creatinine 1.65(H) 0.60 - 1.10 mg/dL [facility] ([place]) Glucose 93 70 - 199 mg/dL [facility] ([place]) Comment: Interpretive Data Fasting glucose >/= 126 mg/dl is diagnostic for diabetes. Fasting is defined as no caloric intake for at least 8 hours. Fasting glucose between 100 mg/dl to 125 mg/dl is diagnostic of prediabetes. In a patient with classic symptoms of hyperglycemia or hyperglycemic crisis, a random glucose >/= 200 mg/dl is diagnostic for diabetes. In the absence of unequivocal hyperglycemia, results should be confirmed by repeat testing. The classification and Diagnosis of Diabetes Diabetes Care 202; 46: S19-S40. Current interpretive data was last revised 2022. Calcium 9.8 8.5 - 10.3 mg/dL [facility] ([place]) Bilirubin, total 0.5 0.1 - 1.2 mg/dL [facility] ([place]) Protein, pl 7.3 6.5 - 8.5 g/dL [facility] ([place]) Albumin 4.6 3.5 - 5.0 g/dL [facility] ([place]) Alk phos 78 40 - 130 Units/L [facility] ([place]) ALT <5(L) 7 - 45 Units/L [facility]) AST 30 10 - 45 Units/L [facility] ([place]) Blood 12/27/2024 10:5 0 AM CDT 12/27/2024 11:52 AM CDT Mamadou Chavez MD LAB BLOOD ORDERABLES Mary bonilla Result [facility] ([place]) 1 [facility] [place] [address] from Last 3 Months Additional Health Concerns Active Problems Noted Date Diagnosed Date Autogenerated Problem 02/22/2025 Insurance MEDICARE [facility] MEDICARE [facility] MEDICARE IDPA Advance Directives For more information, please contact: [phone] * Full Code (Latest Code Status on File) Date Activated Date Inactivated Comments 02/21/2025 2:56 PM 02/23/2025 2:23 PM Care Teams Technical Laboratory Asst Relationship Specialty Start Date End Date Gabriele Morrison [place] [address] [place] [address] PCP - General Family Practice 11/22/22 Alfredo Ortzi MD Surgeon Neurosurgery 07/05/20 Mamadou Chavez MD [address] [place] [address] Referring Physician Medical Oncology 09/07/24 Tirso Troncoso MD [address] [place] [address] Medical Oncologist/Termite Control Representative Medical Oncology 09/07/24 Mckayla Hernandez MD [address] [place] [address] [address] [place] [address] Consulting Physician Cardiology 01/04/25 [place] [address] [place] [address] Referring Physician Neurology 01/04/25 Mitul Dennis, OT Occupational Therapist Occupational Therapy 02/16/25 Yaya Irvin MD [address] [place] [address] [address] [place] [address] Surgeon Orthopedic Surgery 02/22/25
--- OUTSIDE RECORDS SUMMARY | 2025-03-15 14:10 | XMS_ITS ---
Author Organization [facility] Address [address] [place] [address] Care Team Providers Care Vehicle Monitor Technician Name Role Phone Alfredo Ortiz MD Unavailable [phone] Gabriele Morrison Primary Care Provider [phone] Mamadou Chavez MD Unavailable [phone] Tirso Troncoso MD Unavailable Mckayla Hernandez MD Unavailable [phone] Allan Benedict MD Unavailable Mitul Dennis OT Unavailable Unavailable Yaya Irvin MD Unavailable [phone] Active Problems Problem Noted Date Diagnosed Date Hyperkalemia 02/22/2025 Assessment & Plan (02/22/2025 11:44 AM ORGANIC PREPARATION TECHNICIAN): Present on admission; Resolved, K+ 4.1 In [...] syndrome) 08/31/2024 Unclassified epileptic seizures 10/16/2022 Old MA (myocardial infarction) 10/08/2022 Coronary artery disease invo lving c[place] coronary artery of [place] heart without angina pectoris 10/08/2022 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 10/08/2022 Smoking 10/08/2022 Essential hypertension 10/08/2022 Mixed hyperlipidemia 10/08/2022 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 epilepticus 09/10/2022 Current Treatment and Therapy Plans 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 Provider Discretion Mamadou Chavez MD
--- OUTSIDE RECORDS SUMMARY | 2025-03-15 14:10 | XMS_ITS | Clinical Summary ---
Author Organization [facility] Address [address] 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 This disclosure is being madepursuant to the Care Everywhere program and may not contain all information available regarding this patient. Last updated 17.[facility] Allergies Active Allergy Reactions Criticality Noted Date Comments Ciprofloxacin 08/01/2014 Penicillins Rash,Swelling Low 01/25/2010 Medications * Be aware that medications may not be up to date on this document. Alwaysverify current medications with the patient. Acetaminophen (TYLENOL PO) Take by mouth as needed. Active simvastatin (ZOCOR) 40 MG tablet at bedtime. Active aspirin 81 MG tablet Take by mouth once daily. Active famotidine (PEPCID) 20 MG tablet Take 1 (one) tablet by mouth 2 times daily Active benazepril (Lotensin) 5 MG tablet Take 1 (one) tablet by mouth once daily 01/13/2025 Active LORazepam (Ativan) 1 MG tablet TAKE 1 TABLET BY MOUTH EVERY 8 HOURS NEEDED FOR ANXIETY 90 tablet 1 02/07/2025 Active levETIRAcetam (Keppra) 1000 MG tablet TAKE 1 AND 1/2 TABLETS BY MOUTH TWICE DAILY 270 tablet 3 02/07/2025 Active lamoTRIgine (LaMICtal) 100 MG tablet TAKE THREE TABLETS BY MOUTH TWICE A DAY 540 tablet 3 02/07/2025 Active lacosamide (Vimpat) 200 MG tablet Take 1 (one) tablet by mouth 2 times daily 180 tablet 1 02/07/2025 Active cannabidiol (Epidiolex) 100 MG/ML oral solution GIVE 3.3ML BY MOUTH 2 TIMES A DAY. 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, intractable, without status epilepticus (HCC) (Primary Dx); Status post VNS (vagus nerve stimulator) placement 02/07/[address] [employer] [address] [address] Allan Benedict MD Refill Request from Last 3 Months Family History Medical History Relation Name Comments Cancer Other 1 GRANDFATHER Alzheimer's Disease Other 2 GRANDMOTHER Relation Name Status Comments Other 1 GRANDFATHER Other 2 GRANDMOTHER Social History Tobacco Use Types Packs/Day Years Used Date Smoking Tobacco: Every Day Cigarettes Smokeless Tobacco: Never Tobacco Cessation:Ready to Q uit: Not Asked; Counseling Given: Not Answered Comments:offand on for 30 yrs Alcohol Use Standard Drinks/Week Comments No 0 (1 standard drink = 0.6 oz pur e alcohol) Comments No Sex and Gender Information Value Date Recorded Sex Assigned at Female 01/20/2021 9:42 AM CDT Legal Sex Female 11:57 AM DIET ASSISTANT Gender Identity Female 01/20/2021 9:42 AM CDT Sexual Orientation Straight 01/20/2021 9: 42 AM CDT Last Filed Vital Signs Vital Sign Reading Time Taken Comments Blood Pressure 140/76 05/17/2019 11:21 AM DIET ASSISTANT Pulse 77 05/17/2019 11:21 AM DIET ASSISTANT Temperature 36.8 C (98.2 F) 01/04/2015 3:10 PM CDT Respiratory Rate 16 07/23/2021 11:17 AM CDT Oxygen Saturation 97% 05/17/2019 11:21 AM DIET ASSISTANT Inhaled Oxygen Concentration - - Weight 52.2 kg (115 lb) 02/07/2025 11:23 AM DIET ASSISTANT Height 167.6 cm (5' 6) 02/07/2025 11:23 AM DIET ASSISTANT Body Mass Index 18.56 02/07/2025 11:23 AM DIET ASSISTANT Plan of Treatment Upcoming Encounters Date Type Department Care Team (Late st Contact Info) Description 08/08/2025 12:20 PM CDT Office Visit Critical access hospital [address] [facility] [address] [place] [phone] [place] [address] [facility] [address] [place] [address] Health Maintenance Due Date Last Done Comments BONE DENSITY TESTING 1960 COLON MONITORING 1958 COLONOSCOPY - COLON CA SCREENING 1958 CT COLONOGRAPHY - COLON CA SCREENING 1958 FIT - COLON CA SCREENING 1958 FLEX SIG - COLON CA SCREENING 1958 MAMMOGRAM 1960 MEDICARE AWV 12 MONTHS 1958 HEPATITIS C SCREENING 12/28/1975 DTAP/TDAP/TD VACCINES (1 - Tdap) 1977 PNEUMOCOCCAL VACCINE 50+ (1 of 2 - PCV) 1977 ZOSTER VACCINE (1 of 2) 01/02/2008 DEPRESSION SCREENING 03/31/2024 COVID-19 VACCINE ( season) 2024 03/12/2022, 07/24/2021, 01/29/2021, Additional history exists COLOGUARD (AGES 45-75) - COLON CA SCREENING 09/01/2026 09/02/2023 Colorectal Cancer Screening 09/01/2026 Respiratory Syncytial Virus (RSV) Vaccine Pt: or over 60 yrs (1 - 1-dose 75+ series) 2033 INFLUENZA VACCINE Completed 11/27/2024, , 12/30/2023, Additional history exists HEPATITIS B VACCINE Aged Out No longe r eligible based on patient's age to complete this topic HIB VACCINE Aged Out No longer eligi ble based on patient's age to complete this topic HPV VACCINE Aged Out No longer eligi ble based on patient's age to complete this topic MENINGOCOCCAL (Group B) VACCINE SHARED DECISION-MAKING Aged Out No longer eligible based on patient's age to complete this topic MENINGOCOCCAL GROUPS A/C/Y/W VACCINE Aged Out No longer eligible based on patient's age to complete this topic Insurance MEDICARE MEDICAID - [place] Care Teams Packaging Machine Supplies Distributor Relationship Specialty Start Date End Date Gabriele Morrison PA PCP - General Physician Associate Dean 04/22/11 Allan Benedict MD Neurology 11/19/10
== END 2025-03-15 11:51 | disposition home or self-care (01) ==
PROVIDERS: PCP Physician Assistant; Visit Provider Physician Assistant
DX: R06.02 Shortness of breath (principal); I49.9 Cardiac arrhythmia, unspecified; R94.31 Abnormal electrocardiogram [ECG] [EKG]
CPT/HCPCS: 71046; 93005